=== PATIENT | male | born 1965 | race African-American/Black ===

== ENCOUNTER 2020-05-29 06:18 | Emergency (ER) | payer OTHER ==
[2020-05-29] MEDS ORDERED: SODIUM CHLORIDE 1,000 ML IV STA (06:31)
[2020-05-29] MEDS ORDERED: KETOROLAC TROMETHAMINE 30 MG/1 ML VIAL IVPUSH ONE (06:31)
[2020-05-29 06:35] VITALS: BMI 29.9
--- OUTSIDE RECORDS SUMMARY | 2020-05-29 06:36 | XMS ---
:1965 Demographics Address [address] [place] [address] Email Address Preferred Language Kenyan Marital Status Not or Holiness Affiliation NO Race BL Ethnic Group Not or Author Organization [facility] Support Name Relationship Address Phone [employer] Unavailable [address] [facility] [phone] [place] [address] BRIANDA FLORENTINO PARTNER [address] [place] [address] Care Team Providers Name Role Phone ROBERT YIPRIANNA Unavailable Unavailable Belinda Bryant Unavailable BELINDA BRYANT Unavailable Unavailable YipRobertrianna Unavailable Zakia Yip Unavailable Re-disclosure Warning The records that you are about to access may contain information from federally- assisted alcohol or drug abuse programs. If such information is present, then the following federally mandated warning applies: This information has been disclosed to you from records protected by federal confidentiality rules (42 CFR part 2). The federal rules prohibit you from making any further disclosure of this information unless further disclosure is expressly permitted by the written consent of the person to whom it pertains or as otherwise permitted by 42 CFR part 2. A general authorization for the release of medical or other information is NOT sufficient for this purpose. The Federal rules restrict any use of the information to criminally investigate or prosecute any alcohol or drug abuse patient.The records that you are about to access may contain highly sensitive health information, the redisclosure of which is protected by Article 27-F of the [facility] Public Health law. If you continue you may haveaccess to information: Regarding HIV / AIDS; Provided by facilities licensed or operated by the [facility] Office of Mental Health; or Provided by the [facility] Office for People With Developmental Disabilities. If such information is present, then the following [facility] mandated warning applies: This information has been disclosed to you from confidential records which are protected by state law. State law prohibits you from making any further disclosure of this information without the specific written consent of the person to whom it pertains, or as otherwise permitted by law. Any unauthorized further disclosure in violation of state law may result in a fine or long term sentence or both. A general authorization for the release of medical or other information is NOT sufficient authorization for further disclosure. Allergies and Adverse Reactions Type Description Substance Reaction Status Data Source(s ) Shellfish Shellfish NEXTGEN ([facility] [employer]) Drug Class NO KNOWN ALLERGIES NO KNOWN ALLERGIES Health System Encounters Encounter Providers Location Date Indications Data Source(s ) Outpatient 05/10/2020 [facility] ([facility] 10:58:00 [facility] EDT Outpatient 05/09/2020 [facility] ([facility] 11:[facility] EDT Outpatient 03/08/2020 NEXTGEN ([facility] 10[facility] EDT Outpatient 03/07/2020 NEXTGEN ([facility] 10:58:[facility] EDT Outpatient 01/24/2020 NEXTGEN ([facility] 10:[facility] EDT Outpatient 01/05/2020 NEXTGEN ([facility] 01:24:00 [facility] EDT Outpatient 01/05/2020 NEXTGEN ([facility] 04:17:[facility] EDT Outpatient 01/04/2020 NEXTGEN ([facility] 05:40:00 [facility] EDT Attender: Zakia 12/07/[address] [facility] WangAttender: Belinda 06:42:[address] [facility] EDT - 12/07/2019 11:10:00 AM EDT Attender: [address] ED 12/07/2019 [facility] WANGAttender: BELINDA 06:34:00 AM BRYANT EDT - 12/07/2019 11:10:00 AM EDT Patient discharged. Outpatient 09/04/2019 06:58:00 AM EST NEXTGEN ([facility]) Outpatient 09/03/2019 07:52:00 AM EST [facility]argo[facility] ([employer]) Medications Medication Brand Start Product Dose Route Administrative Pharmacy [facility] Indications Reaction Description Data Name Date Form Instructions Instructions Source(s) Acetaminoph oxycod Oral complet 1 tabl et, [place] en 325 MG / one-ac 2019 {tbl} ed Oral, ONC E, Health Oxycodone etamin 11:15: Beba 12/07/19 Hydrochlori ophen 00 AM at 1115, Fo r de 5 MG (PERCO EDT 1 Oral Tablet CET) dose
Maxi oxycodone-a 5-325 mum dose of cetaminophe MG per acetaminoph e n tablet n is 4000 mg (PERCOCET) 1 from all 5-325 MG tablet sources in per tablet 24 1 tablet hours.
Medication administered onsite 1 ML Ketorolac ketorolac 12/07/2019 15 Intravenous complet ed 15 mg, [place] Tromethamine (TORADOL) 09:45:00 AM mg Intravenous, Health 30 MG/ML injection EDT ONCE, Beba Cartridge 15 mg 12/07/19 at ketorolac 0945, For 1 (TORADOL) dose
If injection 15 given IV mg Push, May be given undiluted and Push over 1 minute.
Medication administered onsite cefTRIAXone 12/07/2019 1 g Intravenous completed 1 g, [place] (ROCEPHIN) 1 08:45:00 AM Intra venous, Health g in 5% EDT Administer over dextrose 50 30 Minutes, mL IVPB ONCE, Beba 12/07/19 at 0845, For 1 dose
Do NOT administer with calcium containing IV solutions (Lactated Ringers), parenteral nutrition, etc. Lines MUST be thoroughly flushed between infusions.
Medication administered onsite 150 ML iopamidol 12/07/2019 100 Intravenous completed 100 mL, [place] Iopamidol 760 (ISOVUE-370) 08:45:00 AM mL Intravenous, Health MG/ML 76 % EDT ONCE, Beba Prefilled injection 100 0 at Syringe mL 0845, For 1 iopamidol dose (ISOVUE-370) 76 % injection 100 mL Medication administered onsite morphine 0345-1039-11 12/07/2019 4 mg IV completed 4 mg, IV [place] injection 4 06:45:00 AM Push Push, ONCE, Health mg EDT Beba 12/07/19 at 0645, For 1 dose
If given IV Push, May be given undiluted or may dilute with 5mL NS and Push over 5 minutes.
Medication administered onsite famotidine 12/07/2019 20 mg IV Push completed 20 mg, IV Push, [place] (PEPCID) 20 mg 06:45:00 AM ON CE, [facility] in 0.9% sodium EDT 12/07/19 at chloride (PF) 0645, For 1 5 mL injection dose
Gi ve IV Push, Dilute with normal saline to yield a solution containing 4mg/mL and Push over 2 minutes.
Medication administered onsite sodium 5948-0164-74 12/07/2019 1000 Intravenous completed 1,000 mL, [place] chloride 06:45:00 AM mL Intraveno , Health 0.9 % EDT Administer bolus over 1 Hours, 1,000 mL ONCE, [facility] 12/07/19 at 0645, For 1 dose Medication administered onsite Ibuprofen 600 MG ibuprofen 12/07/2019 600 Oral completed Take 1 [place] Oral Tablet (ADVIL,MOTRIN) 12:00:00 AM mg tablet Health ibuprofen 600 MG tablet EDT by (ADVIL,MOTRIN) mouth 600 MG tablet every 6 (six) hours as needed for Pain for up to 7 days. Take 1 tablet by mouth every 6 (six) halle rs as needed for Pain for up to 7 days. Acetaminophen 325 MG / oxycodone-acetaminophen 12/07/2019 1 Oral completed Take 1 [place] Oxycodone Hydrochloride (PERCOCET) 5-325 MG per 12:00:00 AM {tbl} tablet by Health 5 MG Oral Tablet tablet EDT mouth oxycodone-acetaminophen e very 6 (PERCOCET) 5-325 MG per ( six) tablet hours as needed for Pain for up to 2 days. Max Daily Amount: 4 tablets. Take 1 tablet by mouth every 6 (six) halle rs as needed for Pain for up to 2 days. Max Daily Amount: 4 tablets. Tamsulosin tamsulosin 12/07/2019 0.4 Oral completed Take 1 [place] hydrochloride (FLOMAX) 0.4 12:00:00 AM mg capsule Health 0.4 MG Oral MG 24 hr EDT by mouth Capsule capsule daily for tamsulosin 14 days. (FLOMAX) 0.4 MG 24 hr capsule Take 1 capsule by mouth daily for 14 day s. Sulfamethoxazole 800 MG / sulfamethoxazole-trimethoprim 12/07/2019 1 Oral completed Take 1 [place] Trimethoprim 160 MG Oral (BACTRIM DS) 800-160 MG per 12:00:00 AM {tb l} tablet Health Tablet tablet EDT by sulfamethoxazole-trimethoprim mouth 2 (BACTRIM DS) 800-160 MG per (two) tablet times daily for 10 days. Take 1 tablet by mouth 2 (two) times acacia ly for 10 days. Insurance Providers Payer name Policy type Policy ID Covered Covered republican's Policy P rakesh / Coverage republican ID relationship to Drew Inf ormation type drew HIP HMO [id number] SP [id number] 01 1 HIP [id number] Self [id number] 01 1 HIP Hip [id number] 1 [id number] 01 [address] [place] [address] Problems, Conditions, and Diagnoses Code Display Name Description Problem Type Effective Dates Data Source(s) N20.1 Calculus of Calculus of ureter Diagnosis 12/07/2019 [facility] [place] ureter 06:34:00 AM EDT Abdominal Pain Abdominal Pain Diagnosis 12/07/2019 [place] [facility] 06:34:00 AM EDT back pain back pain Diagnosis 12/07/2019 [place] [employer] abdominal pain abdominal pain 06:34:00 AM EDT denies covid denies covid Surgeries/Procedures Procedure Description Date Indications Data Source(s) CT ABDOEN & PELVIS CT ABDOMEN PELVIS STAT 12/07/2019 12/07/2019 [place] W/CONTRAST MATERIAL W IV CONTRAST 8:34 AM EDT 12 :34:10 PM Health EDT URNLS DIP URINALYSIS STAT 12/07/2019 12/07/2019 [place] STICK/TABLET 7:52 AM EDT 11:52:00 AM Health REAGENT AUTO EDT MICROSCOPY LACTATE LACTIC ACID STAT 12/07/2019 12/07/2019 [place] 7:08 AM EDT 11:08:00 AM Health EDT LIPASE LIPASE STAT 12/07/2019 12/07/2019 [place] 7:07 AM EDT 11:07:00 AM Health EDT THROMBOPLASTIN TIME APTT STAT 12/07/2019 0 [place] PARTIAL 7:07 AM EDT 11:07:00 AM Health PLASMA/WHOLE BLOOD EDT BASIC METABOLIC BASIC METABOLIC STAT 12/07/201912/06 [place] PANEL CALCIUM TOTAL PANEL 7:07 AM EDT 11:07:00 AM Health EDT TROPONIN TROPONIN I STAT 12/07/2019 12/07/2019 [place] QUANTITATIVE 7:07 AM EDT 11:07:00 AM Health EDT PROTHROMBIN TIME PROTIME-INR STAT 12/07/2019 12/07/19 [place] 7:07 AM EDT 11:07:00 AM Health EDT HEPATIC FUNCTION HEPATIC FUNCTION STAT 12/07/2019 [place] PANEL PANEL 7:07 AM EDT 11:07:00 AM Health EDT BLOOD COUNT CBC DIFFERENTIAL STAT 12/07/2019 12/07/19 [place] COMPLETE AUTO&AUTO 7:07 AM EDT 11:07:00 AM Health DIFRNTL WBC COUNT EDT ECG ROUTINE ECG ED EKG 12 LEAD STAT 12/07/20192019 [place] W/LEAST 12 LDS TRCG 6:49 AM EDT 10:49:11 AM Health ONLY W/O I&R EDT TYPE AND SCREEN TYPE AND SCREEN STAT 12/07/201912/06 [place] 6:49 AM EDT 10:49:00 AM Health EDT Results ID Date Data Source [id number] 05/08/2020 02:17:41 PM EDT NEXTG EN ([employer] [facility] [id number] [facility]) >PATIENT: Nancy Richardson DATE OF : 1965DATE: 05/08/2020 05:15 PMVISIT TYPE: Telehealth-A/V This 54 year old male presents for ROUTINE FOLLOW-UP.History of Present Illness:1. ROUTINE FOLLOW-UP 54 year old male presents routine follow-up. He is interested in screening colonoscopy. Last screening colonoscopy was done 6 years, age 47, [place]- polyps. No hx of colon cancer. He denies GI complaints. Normal appetite.P KEITH LIST: Problem List reviewed. Problem Description Onset Date Chronic Clinical Status NotesDM type II Y HTN Y Hyperlipidemia Y Current smoker Y Asthma Y PAST M EDICAL/SURGICAL HISTORY (Detailed)Disease/disorder Onset Date Ma nagement Date CommentsLeft foot surgery Lumbar spine fusion Umbilical hernia repair Family History (Detailed)Relationship Family Member Name Age at Condit ion Onset Age Cause of DeathBrother Y 54 of complications of DM NBrother Diabete s mellitus NFather Y 81 of lung cancer, former smoker NMother Stroke NMothe r Diabetes mellitus NMother Y 78 of complications related to DM NSister Y 48 of breast cancer NSocial History: (Detailed)Tobacco use reviewed.Preferred language is Kenyan. Tobacco use status: Heavy cigarette smoker (20-39 cigs/day).Smokin g status: Heavy tobacco smoker.SMOKING STATUSType Smoking Status Usage Per Day Years Used Total Pack YearsCigarette Heavy tobacco smoker 1 Packs 33.00 33.00TOBACCO/VAPING EXPOSURE There is passive smoke exposure. The patient has had exposure to second hand smoke in the home environment.ALCOHOLThere is a history of alcohol use. consumed socially.CAFFEINE The patient uses caffeine: tea - occ. a day.COMMENTS [employer], direct support f or mentally disabledLives alone, 3 childrenSmokes 1 ppdSocial ETOHNo recreational drug use Medications (active prior to today)Medication Name Sig Description Start Date Stop Aki e Refilled Rx Elsewherealbuterol sulfate 0.63 mg/3 mL solution for nebulization // Yatorvastatin 20 mg tablet take 1 tablet by oral route every day 06/01/2019 06/01/2019 NProAir HFA 90 mcg/actuation aerosol inhaler inhale 2 puff by inhalation route every 4 - 6 hours as needed // YBreo Ellipta 200 mcg-25 mcg/dose powder for inhalation in watson 1 puff by inhalation route every day at the same time each day 06/01/2019 NChantix Starting Month Box 0.5 mg (11)-1 mg (42) tablets in dose pack Take as directed. 0 NChantix Continuing Month Box 1 mg tablet take 1 tablet by oral route 2 times ever y day with glass of water after meals 10/31/2019 Ntamsulosin 0.4 mg capsule take 1 capsu le by oral route every day 1/2 hour following the same meal each day // YBactrim DS 800 mg-160 mg tablet take 1 tablet by oral route every 12 hours // Ylosartan 100 mg tab let TAKE 1 TABLET BY MOUTH EVERY DAY 12/08/2019 12/08/2019 NPercocet 10 mg-325 mg tablet take 1 tablet by oral route every 6 hours as needed 12/08/2019 Nibuprofen 600 mg ta blet take 1 tablet by oral route 3 times every day as needed with food 12/08/2019 05/0 08/2019 NHYDROCHLOROTHIAZIDE 25 MG TAB TAKE 1 TABLET BY MOUTH EVERY DAY 01/12/2020 NJARDIANCE 25 MG TABLET TAKE 1 TABLET BY MOUTH EVERY DAY IN THE MORNING 0 02/09/2020 NCARVEDILOL 25 MG TABLET TAKE 1 TABLET BY MOUTH TWICE A DAY WITH FOOD 02/09/2020 NMETFORMIN HCL 1,000 MG TABLET TAKE 1 TABLET TWICE DAILY WIITH M ORNING AND EVENING MEALS 02/12/2020 02/12/2020 NMedication ReconciliationMedications re conciled today.AllergiesIngredient Reaction (Severity) Medication Name CommentShellf sada Review of SystemsSystem Neg/Pos DetailsConstitutional Negative Chills, F atigue, Fever, Malaise, Night sweats, Weight gain and Weight loss.ENMT Negative Ear draina ge, Hearing loss, Nasal drainage, Otalgia, Sinus pressure and Sore throat.Eyes Negative E ye discharge, Eye pain and Vision changes.Respiratory Negative Chronic cou gh, Cough, Dyspnea, Known TB exposure and Wheezing.Cardio Negative Chest pain, Cla udication, Edema and Irregular heartbeat/palpitations.GI Negative Abdom inal pain, Blood in stool, Change in stool pattern, Constipation, Decreased appetit e, Diarrhea, Heartburn, Nausea and Vomiting. Negative Dribbling, Dysuria, Hematuria, Polyuria (Genitourinary), Slow stream, Urinary frequency, Urinary incontinence and Urin patrick retention.Neuro Negative Dizziness, Extremity weakness, Gait disturbance, Headache, Me tricia impairment, Numbness in extremity, Seizures and Tremors.Psych Negative Anxiety, Depr ession and Insomnia.Integumentary Negative Brittle hair, Brittle nails, Change in s hape/size of mole(s), Hair loss, Hirsutism, Hives, Pruritus, Rash and Skin lesion.MS Negative Back pain, Joint pain, Joint swelling, Muscle weakness and Neck pain.Vital Sign sTime BP mm/Hg Pulse /min Resp /min Temp F Ht ft Ht in Ht cm Wt lb Wt kg BMI kg/m2 BSA m2 O2 Sat%1:20 PM 6.0 3.00 190.50 245.00 111.130 30.62 CommentsTime Comments1:20 PM Unable to obtain Blood Pressure.Measured ByTime Measured by1:20 PM Dana Solis zScreening Summary:The following were reviewed: tobacco usePhysical ExamExam Findings De tailsConstitutional Normal Well developed.Respiratory Normal Inspection - Normal. Effort - Normal.Psychiatric Normal Orientation - Oriented to time, place, p erson and situation. Appropriate mood and affect.Telehealth ServicesThis visit was conducted with the use of interactive audio and video telecommunications system that per mits real time communication between the patient and provider. Patient consent for virtu al visit was obtained on date 05/08/2020[facility] Patient s HomeTotal time of encounter 10 minutes .Assessment/Plan# Detail Type Description 1. Assessment Essential hypertension (I10). Patient Plan -This visit was conducted with the use of interactive audio and video telec ommunications system that permits real time communication between the patient and pr ovider. Patient consent for virtual visit was obtained on date: May 08, 2020 Origina ting Site: [facility] Distant Site: Patient s Home Total time of encounter 15 mi nutes Provider Plan Stable. Continue current treatment. 2. Assessment Hyperlipidemi a, unspecified hyperlipidemia type (E78.5). Provider Plan Stable. Continue current t reatment. 3. Assessment Type 2 diabetes mellitus without complication, with long -term current use of insulin (E11.9). Provider Plan HgbA1C 6.7 Continue current treatme nt. Follow-up in 3 months. 4. Assessment Screening for colon cancer (Z12.11). Pro vider Plan Hx of colon polyps. Screening colonoscopy due- consultation with GI sc heduled. Plan Orders He is to schedule a follow-up visit with He Recio or consultation. Medications (Added, Continued or Stopped today)Started Medication Dire ctions Instruction Stopped albuterol sulfate 0.63 mg/3 mL solution for nebulization 05/10 atorvastatin 20 mg tablet take 1 tablet by oral route every day Bactrim DS 800 m g-160 mg tablet take 1 tablet by oral route every 12 hours 06/01/2019 Breo Ellipta 200 mcg-25 mcg/dose powder for inhalation inhale 1 puff by inhalation route every day at the same time each day 02/09/2020 CARVEDILOL 25 MG TABLET TAKE 1 TABLET BY MOUTH TWICE A DAY WITH FOOD 10/31/2019 Chantix Continuing Month Box 1 mg tablet take 1 tablet by o ral route 2 times every day with glass of water after meals 10/31/2019 Chantix Starting Month Box 0.5 mg (11)-1 mg (42) tablets in dose pack Take as directed. 01/12/2020 HYDRO CHLOROTHIAZIDE 25 MG TAB TAKE 1 TABLET BY MOUTH EVERY DAY 12/08/2019 ibuprofen 600 mg t ablet take 1 tablet by oral route 3 times every day as needed with food 02/09/2020 JARD IANCE 25 MG TABLET TAKE 1 TABLET BY MOUTH EVERY DAY IN THE MORNING 12/08/2019 losartan 100 mg tablet TAKE 1 TABLET BY MOUTH EVERY DAY 02/12/2020 METFORMIN HCL 1,000 MG TABLET TAKE 1 TABLET TWICE DAILY WIITH MORNING AND EVENING MEALS 12/08/2019 Percocet 10 mg -325 mg tablet take 1 tablet by oral route every 6 hours as needed ProAir HFA 90 mcg/ac tuation aerosol inhaler inhale 2 puff by inhalation route every 4 - 6 hours as n eeded tamsulosin 0.4 mg capsule take 1 capsule by oral route every day 1/2 hour follow ing the same meal each day Counseling / Educational Factors:Counseling / educati onal factors reviewed.Provider: Crissy Fitzpatrick DO 05/08/2020 1:53 PMDocument generated by: Crissy Fitzpatrick DO 05/08/2020 01:53 PM --------- Krystin [facility] Nancy Sharpe [id number] 1965 020 05:15 PM / Name Value Range Interpretation Code Description Data Susan rce(s) Supporting Document(s ) ID Date Data Source [id number] 03/22/2020 04:21:19 PM EDT RENEG EN (Janell Nuñez [id number] [facility]) >PATIENT: Nancy Richardson DATE OF : 1965DATE: 03/22/2020 02:45 PMVISIT TYPE: Telehealth-A/VThis 54 year old male presents for ABDOMINAL COMPLAINTS.History of Present Illness:1. ABDOMINAL COMPLAINTS 54 year old male presents with complaints of abdominal cramping with diarrhea that started this morning. No fever or chill s. No blood or mucus. He attributes GI complaints to eating contaminated food. No sick contacts.PROBLEM LIST: Problem List reviewed. Problem Descripti on Onset Date Chronic Clinical Status NotesDM type II Y HTN Y Hyperlipidemia Y Current smoker Y Asthma Y Medications (active prior to today)Medic ation Name Sig Description Start Date Stop Date Refilled Rx Elsewherealbuterol sulfate 0.63 mg/3 mL solution for nebulization // Yatorvastatin 20 mg t ablet take 1 tablet by oral route every day 06/01/2019 06/01/2019 NProAir HFA 90 mcg/actuation aerosol inhaler inhale 2 puff by inhalation route every 4 - 6 ho urs as needed // YBreo Ellipta 200 mcg-25 mcg/dose powder for inhalation inhale 1 puff by inhalation route every day at the same time each day 06/01/2019 N Chantix Starting Month Box 0.5 mg (11)-1 mg (42) tablets in dose pack Take as directed. 10/31/2019 NChantix Continuing Month Box 1 mg tablet take 1 tablet by o ral route 2 times every day with glass of water after meals 10/31/2019 Ntamsulosin 0.4 mg capsule take 1 capsule by oral route every day 1/2 hour following the same meal each day // YBactrim DS 800 mg-160 mg tablet take 1 tablet by oral route every 12 hours // Ylosartan 100 mg tablet TAKE 1 TABLET BY MOUTH RITESH 12/08/2019 12/08/2019 NPercocet 10 mg-325 mg tablet take 1 tablet by oral route every 6 hours as needed 12/08/2019 Nibuprofen 600 mg tablet ta ke 1 tablet by oral route 3 times every day as needed with food 12/08/2019 12/08/2019 NHYDROCHLOROTHIAZIDE 25 MG TAB TAKE 1 TABLET BY MOUTH EVERY DAY 020 01/12/2020 NJARDIANCE 25 MG TABLET TAKE 1 TABLET BY MOUTH EVERY DAY IN THE MORNING 02/09/2020 02/09/2020 NCARVEDILOL 25 MG TABLET TAKE 1 TABLET B Y MOUTH TWICE A DAY WITH FOOD 02/09/2020 02/09/2020 NMETFORMIN HCL 1,000 MG TABLET TAKE 1 TABLET TWICE DAILY WIITH MORNING AND EVENING MEALS 02/12/2020 NAllergiesIngredient Reaction (Severity) Medication Name CommentShellfish Review of SystemsSystem Neg/Pos DetailsConstitutional Negative Chills, F atigue, Fever, Malaise, Night sweats, Weight gain and Weight loss.ENMT Negative Ear drainage, Hearing loss, Nasal drainage, Otalgia, Sinus pressure and So re throat.Eyes Negative Eye discharge, Eye pain and Vision changes.Respiratory Negative Chronic cough, Cough, Dyspnea, Known TB exposure and Wheezing.Cardio Ne gative Chest pain, Claudication, Edema and Irregular heartbeat/palpitations.GI Positive Abdominal pain, Diarrhea.GI Negative Blood in stool, Change in stool pattern, Constipation, Decreased appetite, Heartburn, Nausea and Vomiting. Negative Dribbling, Dysuria, Hematuria, Polyuria (Genitourinary), Slow stream, U rinary frequency, Urinary incontinence and Urinary retention.Psych Negative Anxiety, Depression and Insomnia.Integumentary Negative Brittle hair, Brittle nails, Change in shape/size of mole(s), Hair loss, Hirsutism, Hives, Pruritus, Rash and Skin lesion.MS Negative Back pain, Joint pain, Joint sw elling, Muscle weakness and Neck pain.Physical ExamExam Findings DetailsConstitutional Normal Well developed.Respiratory Normal Inspection - Normal. Effort - Nor mal.Psychiatric Normal Orientation - Oriented to time, place, person and situation. Appropriate mood and affect.Telehealth ServicesThis visit was conducted with the use of interactive audio and video telecommunications system that permits real time communication between the patient and provider. Lorena martinez consent for virtual visit was obtained on date 03/22/2020[facility] Patient s HomeTotal time of encounter 10 minutes .Assessment/Plan# Detail Type Description 1. Assessment Acute gastroenteritis (K52.9). Patient Plan -This visit was conducted with the use of interactive au robert and video telecommunications system that permits real time communication between the patient and provider. Patient consent for virtual visit was obtained o n date: March 22, 2020 Originating Site: [facility] Site: Patient s Home Total time of encounter 10 mi nutes Provider Plan Recommend bland diet, rest, plenty of fluids. Call or return if no improvement. Medications (Added, Continued or Stopped today)Started Medic ation Directions Instruction Stopped albuterol sulfate 0.63 mg/3 mL solution for nebulization 06/01/2019 atorvastatin 20 mg tablet take 1 tablet by oral route every day Bactrim DS 800 mg-160 mg tablet take 1 tablet by oral route every 12 hours 06/01/2019 Breo Ellipta 200 mcg-25 mcg/dose powder for inhalation in watson 1 puff by inhalation route every day at the same time each day 02/09/2020 CARVEDILOL 25 MG TABLET TAKE 1 TABLET BY MOUTH TWICE A DAY WITH FOOD 10/31/2019 Chantix Continuing Month Box 1 mg tablet take 1 tablet by oral route 2 times every day with glass of water after meals 10/31/2019 Chantix Starting Month Box 0. 5 mg (11)-1 mg (42) tablets in dose pack Take as directed. 01/12/2020 HYDROCHLOROTHIAZIDE 25 MG TAB TAKE 1 TABLET BY MOUTH EVERY DAY 12/08/2019 ibuprofen 60 0 mg tablet take 1 tablet by oral route 3 times every day as needed with food 02/09/2020 JARDIANCE 25 MG TABLET TAKE 1 TABLET BY MOUTH EVERY DAY IN THE MORNING 12/08/2019 losartan 100 mg tablet TAKE 1 TABLET BY MOUTH EVERY DAY 02/12/2020 METFORMIN HCL 1,000 MG TABLET TAKE 1 TABLET TWICE DAILY WIITH MORNING AND RITESH NICK MEALS 12/08/2019 Percocet 10 mg- 325 mg tablet take 1 tablet by oral route every 6 hours as needed ProAir HFA 90 mcg/actuation aerosol inhaler inhale 2 p uff by inhalation route every 4 - 6 hours as needed tamsulosin 0.4 mg capsule take 1 capsule by oral route every day 1/2 hour following the same meal each da y Provider: Crissy Fitzpatrick DO 03/22/2020 3:13 PMDocument generated by: Crissy Fitzpatrick DO 03/22/2020 03:13 PM - ---[employer] ally signed by Crissy Fitzpatrick DO on 03/22/2020 04:21 OlgaNancy vaughn [id number] 1965 03/22/2020 02:45 PM / Name Value Range Interpretation Code Description Data Susan rce(s) Supporting Document(s ) ID Date Data Source [id number] 03/11/2020 08:55:16 AM EDT [facility] EN ([facility] [id number] [facility]) >PATIENT: Nancy Richardson DATE OF : 1965DATE: 03/06/2020 07:45 AMVISIT TYPE: Office VisitThis 54 year old male presents for WELL ADULT EXAM.History of Present Illness:1. WELL ADULT EXAM 54 year old male presents for well adult exam. He is interested in getting screened for Covid ab. He was e xposed to positive coworker 1-2 weeks ago. Currently, patient is asymptomatic, afebrile.Colonoscopy: 3 years ago - JAJA Wong- polypsScreening Tools Other Screenings:Encounter Date Documented Date Instrument Score Severity/Interpretation MDD Tntfioxzkpaowx08/29/2020 03/06/2020 Rosa ent Health Questionnaire (PHQ-9) 0 03/06/2020 03/06/2020 Patient Health Questionnaire (PHQ-2) 0 Further testing is not required PATIENT HEALTH Q UESTIONNAIREOver the last 2 weeks, how often have you been bothered by any of the following problems? NOT AT ALL SEVERAL DAYS MORE THAN HALF THE DAYS NEARLY EVERY DAY1. Little interest or pleasure in doing things X 2. Feeling down, depressed or hopeless X 3. Trouble falling or staying asleep, o r sleeping too much 4. Feeling tired or having little energy 5. Poor appetite or overeating 6. Feeling bad about yourself - or that you are a failure or have let yourself or your family down 7. Trouble concentrating on things, such as reading the newspaper or watching television 8. Moving or speaking so slowly that other people could have noticed. Or the opposite - being so fidgety or restless that you have been moving around a lot more than usual. 9. Thoughts that you would be better off , or of hurt ing yourself in some way NOT DIFFICULT AT ALL SOMEWHAT DIFFICULT VERY DIFFICULT EXTREMELY [id number]. If you checked off any prob lems, how difficult have these problems made it for you to do your work, take care of things at home or get along with other pe ople? Total score: Screening total score was 0. Interpretation of total score: Initial diagnosis: None. Comments: PROBLEM LIST: Problem List r nehemiah. Problem Description Onset Date Chronic Clinical Status NotesDM type II Y HTN Y Hyperlipidemia Y Current smoker Y Asthma Y PAST MEDI BRENDA/SURGICAL HISTORY (Detailed)Disease/disorder Onset Date Management Date CommentsLeft foot surgery Lumbar spine fusion Umbilical hernia repair Family History (Detailed)Relationship Family Member Name Age at Condition Onset Age Cause of DeathBrother Y 54 of comp lications of DM NBrother Diabetes mellitus NFather Y 81 of lung cancer, former smoker NMother Stroke NMother Diabetes mellitus NM other Y 78 of complications related to DM NSister Y 48 of breast cancer NSocial History: (Reviewed, updated)Tobacco use reviewed. Preferred language is Kenyan. Tobacco use status: Heavy cigarette smoker (20-39 cigs/day).Smoking status: Heavy tobacco smoker.SMOKING STATUSType Smoking Status Usage Per Day Years Used Total Pack YearsCigarette Heavy tobacco smoker 1 Packs 33.00 33.00TOBACCO/VAPING EXPOSUREThere is pas sive smoke exposure. The patient has had exposure to second hand smoke in the home environment.ALCOHOLThere is a history of alcohol use. consumed s ocially.CAFFEINEThe patient uses caffeine: tea - occ. a day.COMMENTS [employer], direct support for mentally disabledLives alone, 3 childrenSmokes 1 ppdSocial ETOHNo recreational drug useMedications (active prior to today)Medication Name Sig Description Start Date Stop Date Refilled Rx Elsewhe realbuterol sulfate 0.63 mg/3 mL solution for nebulization // Yatorvastatin 20 mg tablet take 1 tablet by oral route every day 06/01/20192018 NProAir HFA 90 mcg/actuation aerosol inhaler inhale 2 puff by inhalation route every 4 - 6 hours as needed // YBreo Ellipta 200 mcg-25 mcg /dose powder for inhalation inhale 1 puff by inhalation route every day at the same time each day 06/01/2019 NChantix Starting Month Box 0.5 mg (11 )-1 mg (42) tablets in dose pack Take as directed. 10/31/2019 NChantix Continuing Month Box 1 mg tablet take 1 tablet by oral route 2 times ever y day with glass of water after meals 10/31/2019 Ntamsulosin 0.4 mg capsule take 1 capsule by oral route every day 1/2 hour following the same me al each day // YBactrim DS 800 mg-160 mg tablet take 1 tablet by oral route every 12 hours // Ylosartan 100 mg tablet TAKE 1 TABLET BY MOUTH 12/08/2019 12/08/2019 NPercocet 10 mg-325 mg tablet take 1 tablet by oral route every 6 hours as needed 12/08/2019 Nibuprofen 600 mg ta blet take 1 tablet by oral route 3 times every day as needed with food 12/08/2019 12/08/2019 NHYDROCHLOROTHIAZIDE 25 MG TAB TAKE 1 TA BLET BY MOUTH EVERY DAY 01/12/2020 01/12/2020 NJARDIANCE 25 MG TABLET TAKE 1 TABLET BY MOUTH EVERY DAY IN THE MORNING 02/09/2020 02/09/2020 NCARV EDILOL 25 MG TABLET TAKE 1 TABLET BY MOUTH TWICE A DAY WITH FOOD 02/09/2020 02/09/2020 NMETFORMIN HCL 1,000 MG TABLET TAKE 1 TABLET TWICE DAILY WIIT H MORNING AND EVENING MEALS 02/12/2020 02/12/2020 NMedication ReconciliationMedications reconciled today.AllergiesIngredient Reaction (Antoinettecaroline wadsworth) Medication Name CommentShellfish Reviewed, no changes.Review of SystemsSystem Neg/Pos DetailsConstitutional Negative Chills, F atigue, Fever, Malaise, Night sweats, Weight gain and Weight loss.ENMT Negative Ear drainage, Hearing loss, Nasal drainage, Otalgia, Sinus pressure and Sore throat.Eyes Negative Eye discharge, Eye pain and Vision changes.Respiratory Negative Chronic cough, Cough, Dyspnea, Known TB exposure and Wh eezing.Cardio Negative Chest pain, Claudication, Edema and Irregular heartbeat/palpitations.GI Negative Abdominal pain, Blood in stool, Change i n stool pattern, Constipation, Decreased appetite, Diarrhea, Heartburn, Nausea and Vomiting. Negative Dribbling, Dysuria, Erectile dysfunction , Hematuria, Polyuria (Genitourinary), Slow stream, Urinary frequency, Urinary incontinence and Urinary retention.Endocrine Negative Cold intole suzan, Heat intolerance, Polydipsia and Polyphagia.Neuro Negative Dizziness, Extremity weakness, Gait disturbance, Headache, Memory impairment , Numbness in extremity, Seizures and Tremors.Psych Negative Anxiety, Depression and Insomnia.Integumentary Negative Brittle hair, Brittle nails, Ch gini in shape/size of mole(s), Hair loss, Hirsutism, Hives, Pruritus, Rash and Skin lesion.MS Negative Back pain, Joint pain, Joint swelling, Muscle weakness and Neck pain.Reproductive Negative Penile discharge and Sexual dysfunction.Vital SignsTime BP mm/Hg Pulse /min Resp /min Temp F Ht ft Ht in Ht cm Wt lb Wt kg BMI kg/m2 BSA m2 O2 Sat%7:48 AM 130/81 93 98.0 6.0 3.00 190.50 240.00 108.862 30.00 97Measured ByTime Measured by7:48 AM Julia cara LedeeScreening Summary:The following were reviewed: tobacco usePhysical ExamExam Findings DetailsConstitutional Normal Well develo ped.Eyes Normal Conjunctiva - Right: Normal, Left: Normal. Pupil - Right: Normal, Left: Normal.Ears Normal Inspection - Right: Normal, Left: Normal . Canal - Right: Normal, Left: Normal. TM - Right: Normal, Left: Normal.Nose/Mouth/Throat Normal External nose - Normal. Lips/teeth/gums - Normal. Tonsils - Normal. Oropharynx - Normal.Respiratory Normal Inspection - Normal. Auscultation - Normal. Effort - Normal.Cardiovascular Normal Regular r ate and rhythm. No murmurs, gallops, or rubs.Abdomen Normal Inspection - Normal. Auscultation - Normal. No abdominal tenderness. No hepatic enlarge ment. No spleen enlargement. No hernia.Neurological Normal Memory - Normal. Cranial nerves - Cranial nerves II through XII grossly intact. Sensory - Normal. DTRs - Normal.Psychiatric Normal Orientation - Oriented to time, place, person and situation. Appropriate mood and affect.Immunization sImmunization Administered By Completed Library Paraprofessional Lot Number Route Site Credentials Date VIS Given Version Date of VIS Comments CVX CodeZoster vishnu mbinant subunit, preservative free Felipe MOE, Opal 03/06/2020 8:25:27 AM Gnarus SystemsoSmCold FuturesKline [id number] Intramuscular Left Deltoid 03/06/2020 1 187Completed Orders (this encounter)Order Details Reason Side Interpretation Result Initial Treatment Date RegionPatient Health Ques tionnaire (PHQ-9) 0 Patient Health Questionnaire (PHQ-2) Further testing is not required 0 Assessment/Plan# Detail Type Description Assessment Encounter for screening for malignant neoplasm of prostate (Z12.5). 2. Assessment Encntr for general adult medical exam w/o abnormal findings (Z00.00). Patient Plan 1. Counseled about healthy lifestyle habits such as smoking cessation, limiting alcohol intake, regular moderat e-intensity aerobic exercise (at least 30-45 mins a day x 5-6 days) safe sex practice with sexually transmitted disease screening, colon can cer screenining starting at age 50 or earlier for high risk patients, dyslipidemia screening at age 35 or earlier for patients with strong family history of cardiovascular disease and age appropriate immunizations such as influenza, tetantus and pneumoccocal. 2. Limit daily intake o f saturated fat, cholesterol, sodium, and added sugar. 3. Return for fasting bloodwork. 4. Follow-up in one year or as needed. Plan Orders CBC With Auto Diff to be performed, Complete Metabolic Profile (CMP) to be performed, Hemoglobin A1c (HA1C) to be performed, Lipid Panel to be performed, Microalbumin, Urine W/Crea Ratio to be performed, PSA (Prostate Specific Antigen) to be performed and TSH With Reflex To Free T4 to be performed. He is to schedule a follow-up visit with Crissy Fitzpatrick DO for preventive care 1 Year. 3. Assessment Type 2 diabetes mellitus without complication, with long-term current use of insulin (E11.9). Provider Plan HgbA1C 6.7 Continue current treatment. Continue diet and exercise. 4. Assessment Essen tial hypertension (I10). Provider Plan Stable. Continue current treatment. 5. Assessment Hyperlipidemia, unspecified hyperlipidemia type (E78.5). Provider Plan Stable. Continue current treatment. 6. Assessment Chronic obstructive pulmonary disease, unspecified COPD type (J44.9). Provider Plan Stable. Continue current treatment. 7. Assessment Encounter for observation for suspected exposure to other biological agents ruled out (Z03.8 18). Plan Orders SARS CoV 2 AB (IgG) to be performed. 8. Assessment Need for shingles vaccine (Z23). Plan Orders Zoster recombinant subunit, pres ervative free Status: Administered. Medications (Added, Continued or Stopped today)Started Medication Directions Instruction Stopped albuterol sulfate 0.63 mg/3 mL solution for nebulization 06/01/2019 atorvastatin 20 mg tablet take 1 tablet by oral route every day Bactrim DS 800 mg-160 mg tablet take 1 tablet by oral route every 12 hours 06/01/2019 Breo Ellipta 200 mcg-25 mcg/dose powder for inhalation inhale 1 puff by inhalati on route every day at the same time each day 02/09/2020 CARVEDILOL 25 MG TABLET TAKE 1 TABLET BY MOUTH TWICE A DAY WITH FOOD 10/31/2019 Chanti x Continuing Month Box 1 mg tablet take 1 tablet by oral route 2 times every day with glass of water after meals 10/31/2019 Chantix Starting Month Box 0.5 mg (11)-1 mg (42) tablets in dose pack Take as directed. 01/12/2020 HYDROCHLOROTHIAZIDE 25 MG TAB TAKE 1 TABLET BY MOUTH EVERY DAY 2019 ibuprofen 600 mg tablet take 1 tablet by oral route 3 times every day as needed with food 02/09/2020 JARDIANCE 25 MG TABLET TAKE 1 TABLET BY MOUTH EVERY DAY IN THE MORNING 12/08/2019 losartan 100 mg tablet TAKE 1 TABLET BY MOUTH EVERY DAY 02/12/2020 METFORMIN HCL 1,000 MG TABLET TAKE 1 TABLET TWICE DAILY WIITH MORNING AND EVENING MEALS 12/08/2019 Percocet 10 mg-325 mg tablet take 1 tablet by oral route every 6 hours as n eeded ProAir HFA 90 mcg/actuation aerosol inhaler inhale 2 puff by inhalation route every 4 - 6 hours as needed tamsulosin 0.4 mg capsule take 1 capsule by oral route every day 1/2 hour following the same meal each day Counseling / Educational Factors:Counseling / educational factors reviewed.Provider: Crissy Fitzpatrick DO 03/11/2020 8:49 AMDocument generated by: Crissy Fitzpatrick DO 03/11/2020 08:49 AM [employer] Nancy Abbott [id number] 1965 03/06/2020 07:45 AM / Name Value Range Interpretation Code Description Data Susan rce(s) Supporting Document(s ) ID Date Data Source [id number] 01/16/2020 12:00:00 AM EDT [facility] January 16, 2020Cailin Gardner [address] [place] [place], [place] [address]Bbx# Fax# [phone] RE: NANCY RICHARDSON : 1965 PT TEL# [phone] STUDY DATE: 01/16/2020Dear Gonzales Mejia MD:CT S CAN WITHOUT CONTRAST - ABDOMEN AND PELVISHISTORY: Possible kidney stone. H istory of herniorrhaphy and back surgery.CT of the abdomen and pelvis was performed without oral and intravenous contrast using the stone protocol. Images were obtained from the lung bases to the pubic symphysis. Axial, coronal and sagittal images were also obtained. Utilizing adjunct professor of law algorithms, the examination was performe d to optimize imaging quality while utilizing the lowest possible radiation dose.GLORIA RISON: None.FINDINGS:KIDNEYS: There is a 2-3 mm calculus in the lower pole of the rig ht kidney. Masses and cysts can be missed without intravenous contrast. A repeat s tudy with intravenous contrast or sonogram is recommended, if clinically indicated. Th ere is no evidence of hydronephrosis, other renal, ureteral or bladder calculi. The urinary bladder is not opacified. There is a calcified phlebolith in the right pelvis .LUNG BASES: Normal.LIVER: Normal. There is no evidence of a mass or intrahepatic or extrahepatic biliary dilatation.SPLEEN: Normal.PANCREAS: Normal for a noncontra st study. Masses can be missed without contrast.ADRENAL GLANDS: Normal.AORTA: There is no evidence of aortic aneurysm. .GALLBLADDER: The gallbladder is grossl y normal without evidence of radiopaque gallstones, abnormal wall thickening or pericholecystic fluid.. There is no gross evidence of gallstones. Ultrasound is driscoll ggested if clinically warranted.APPENDIX: The appendix is normal. There is no evid ence of appendicitis including an appendicolith, perforation, abscess or p eriappendiceal induration..LYMPHADENOPATHY: There is no evidence of lymphadenopathy throughout the study.,BOWEL: There is a redundant sigmoid colon extending into t he left lower quadrant. The remaining bowel appears to be grossly normal. It is not optimally evaluated due to the lack of oral contrast. There is no gross evidence of bowel-containing hernia, perforation or abscess.There is a nonspecific calcifica tion along the right iliac this muscle of the superior right iliac bone and between th e right iliac muscle and right iliopsoas muscle. Lumbar surgery is noted. There h as been posterior fusion of L3-L4. There is severe degenerative changes of L5-S1 wit h moderate or severe disc space narrowing.IMPRESSION:No evidence of acut e pathology. Right renal calculus. Redundant sigmoid colon.PS Electronically Signed: Donavon James MD 01/16/2020 1:30 PM FA:[facility] OF [facility]EElectronica falguni Signed - Donavon James MD 01/16/20 13:31 Name Value Range Interpretation Code Description Data Susan rce(s) Supporting Document(s ) ID Date Data Source [id number] 12/13/2019 10:46:35 PM EDT [facility]EXT[facility] EN ([place] [id number]) >PATIENT: Nancy Richardson DATE OF : 1965DATE: 12/08/2019 07:45 AMVISIT TYPE: Telehealth-A/VThis 54 year old male presents for ED FOLLOW-UP.History of Present Illness:1. ED FOLLOW-UP 54 year old male presents for ED follow-up. He went to the ED at [facility] with complaints of right sided flank and abdominal pain via ambulance yesterday. He was woken up at 2 am. No fever or chills. He vomited 4-[address] abdomen, pelvis showed obstructing 4 mm stone within the distal right ureter. He was given pain medication via IV. Patient was sent home with Flomax, Ibuprofen, Percocet and Bactrim DS in which he has been taking. He continues to have pain, improved. 09/18. He was a ble to get sleep. Afebrile. He was recommended to follow-up with Urology.PROBLEM LIST: Problem List reviewed. Problem Description Onset Date Chronic Clinical Status NotesDM type II Y HTN Y Hyperlipidemia Y Current smoker Y Asthma Y PAST MEDICAL/SURGICAL HISTORY (Detailed)Disease/disorder Onset Date Ma nagement Date CommentsLeft foot surgery Lumbar spine fusion Umbilical hernia repair Family History (Detailed)Relationship Family Member Name Age at Condition Onset Age Cause of DeathBrother Y 54 of complications of DM NBrother Diabetes mellitus NFather Y 81 of lung cancer, former smoker NMother S troke NMother Diabetes mellitus NMother Y 78 of complications related to DM NSister Y 48 of breast cancer NSocial History: (Detailed)Preferred language i s Kenyan. Tobacco use status: Heavy cigarette smoker (20-39 cigs/day).Smoking status: Heavy tobacco smoker.TOBACCO/VAPING EXPOSUREThere is passive smoke exposure. The patient has had exposure to second hand smoke in the home environment.ALCOHOLThere is a history of alcohol use. consumed socially.CAFFEINEThe patient uses caffei ne: tea - occ. a day.COMMENTS [employer], direct support for mentally disabledLives alone, 3 childrenSmokes 1 ppdSocial ETOHNo recreational drug useMedications (active prior to today)Medication Name Sig Description Start Date Stop Date Refilled Rx Elsewherealbuterol sulfate 0.63 mg/3 mL solution for nebulization // Yhydrochlorothiaz caron 25 mg tablet take 1 tablet by oral route every day 06/01/2019 06/01/2019 Natorvastatin 20 mg tablet take 1 tablet by oral route every day 06/01/2019 06/01/2019 Nmetformin 1,000 mg tablet take 1 tablet by oral route 2 times every day with morning and evening meals 06/01/2019 06/01/2019 NJardiance 25 mg tablet take 1 tablet by oral route every day in the morning 06/01/2019 06/01/2019 Ncarvedilol 25 mg tablet take 1 tablet by oral route 2 times every day with food 06/01/2019 06/01/2019 NProAir HFA 90 mcg/actuation aerosol inhaler inhale 2 puff by inhalation route every 4 - 6 hours as needed // YBreo Ellipta 200 mcg-25 mcg/dose powder for inhalation inhale 1 puff by inhalation route every day at the same time each day 06/01/2019 NLOSARTAN POTASSIUM 100 MG TAB TAKE 1 TABLET BY MOUTH EVERY DAY 10/10/2019 12/08/2019 12/08/19 20 NChantix Starting Month Box 0.5 mg (11)-1 mg (42) tablets in dose pack Take as directed. 10/31/2019 NChantix Continuing Month Box 1 mg tablet take 1 tablet by oral ro symone 2 times every day with glass of water after meals 10/31/2019 NPercocet 5 mg-325 mg tablet take 1 tablet by oral route every 12 hours as needed // 12/08/2019 Ytamsu losin 0.4 mg capsule take 1 capsule by oral route every day 1/2 hour following the same meal each day // YBactrim DS 800 mg-160 mg tablet take 1 tablet by oral route e very 12 hours // Yibuprofen 600 mg tablet take 1 tablet by oral route 3 times every day as needed with food // 12/08/2019 12/08/2019 YAllergiesIngredient Reaction (Severity) Medication Name CommentShellfish Review of SystemsSystem Neg/Pos DetailsConstitutional Negative Chills, Fatigue, Fever, Malaise, Night sweats, Weight gai n and Weight loss.ENMT Negative Ear drainage, Hearing loss, Nasal drainage, Otalgia, Sinus pressure and Sore throat.Eyes Negative Eye discharge, Eye pain and Vision oliver es.Respiratory Negative Chronic cough, Cough, Dyspnea, Known TB exposure and Wheezing.Cardio Negative Chest pain, Claudication, Edema and Irregular heartbeat/palpitatio ns.GI Negative Abdominal pain, Blood in stool, Change in stool pattern, Constipation, Decreased appetite, Diarrhea, Heartburn, Nausea and Vomiting. Negative Dribblin g, Dysuria, Hematuria, Polyuria (Genitourinary), Slow stream, Urinary frequency, Urinary incontinence and Urinary retention.Neuro Negative Dizziness, Extremity weakness, Gait disturbance, Headache, Memory impairment, Numbness in extremity, Seizures and Tremors.Psych Negative Anxiety, Depression and Insomnia.Integumentary Negative Brittle hair, Brittle nails, Change in shape/size of mole(s), Hair loss, Hirsutism, Hives, Pruritus, Rash and Skin lesion.MS Negative Back pain, Joint pain, Joint swelling, Muscle weakness and Neck pain.Physical ExamExam Findings DetailsConstitutional Normal No acute distress. Well nourished. Well developed.Respiratory Normal Inspection - Normal. Effort - Normal.Psychiatric Normal Orientation - Oriented to time, place, person and situation. Appropriate mood and affect.Telehealth ServicesThis visit was conducted with the use of interactive audio and video telecommunications system that permits real time communication between the patient and provider. Patient consent f or virtual visit was obtained on date 12/08/2019Originating Site: [facility] Site: Patient s HomeTotal time of encounter 20 minutes .Assessment/Plan# Detail Type Description 1. Assessment Right ureteral calculus (N20.1). Provider Plan Reviewed ED summary. Pain medication adjusted. Consultation with Bianca ellis. Plan Orders He is to schedule a follow-up visit with Gonzales Mejia MD for consultation. 2. Assessment Type 2 diabetes mellitus without complication, with long-term current use of insulin (E11.9). Provider Plan Continue current treatment. Follow-up in February as scheduled. 3. Assessment Chronic obstructive pulmonary disease, unspecified COPD type (J44.9). Provider Plan Continue current treatment. 4. Assessment Essential hypertension (I10). Provider Plan Continue currently treatme nt. Medications (Added, Continued or Stopped today)Started Medication Directions Instruction Stopped albuterol sulfate 0.63 mg/3 mL solution for nebulization 06/01/2019 a torvastatin 20 mg tablet take 1 tablet by oral route every day Bactrim DS 800 mg-160 mg tablet take 1 tablet by oral route every 12 hours 06/01/2019 Breo Ellipta 200 mc g-25 mcg/dose powder for inhalation inhale 1 puff by inhalation route every day at the same time each day 06/01/2019 carvedilol 25 mg tablet take 1 tablet by oral route 2 times every day with food 10/31/2019 Chantix Continuing Month Box 1 mg tablet take 1 tablet by oral route 2 times every day with glass of water after meals 10/31/2019 C hantix Starting Month Box 0.5 mg (11)-1 mg (42) tablets in dose pack Take as directed. 06/01/2019 hydrochlorothiazide 25 mg tablet take 1 tablet by oral route every day 12/08/2019 ibuprofen 600 mg tablet take 1 tablet by oral route 3 times every day as needed with food 06/01/2019 Jardiance 25 mg tablet take 1 tablet by oral route ever y day in the morning 12/08/2019 losartan 100 mg tablet TAKE 1 TABLET BY MOUTH EVERY DAY 06/01/2019 metformin 1,000 mg tablet take 1 tablet by oral route 2 times every day with morning and evening meals 12/08/2019 Percocet 10 mg-325 mg tablet take 1 tablet by oral route every 6 hours as needed ProAir HFA 90 mcg/actuation aerosol inha ler inhale 2 puff by inhalation route every 4 - 6 hours as needed tamsulosin 0.4 mg capsule take 1 capsule by oral route every day 1/2 hour following the same meal eac h day Provider: Crissy Fitzpatrick DO 12/13/2019 9:29 PMDocument generated by: Crissy Fitzpatrick DO 12/13/2019 09:28 PM ----[employer] Anderson Nancy [id number] 1965 12/08/2019 07:45 AM / Name Value Range Interpretation Code Description Data Susan rce(s) Supporting Document(s ) ID Date Data Source [id number] 12/11/2019 02:34:31 PM EDT [facility] EN ([employer] [id number] [employer]) >Patient: Nancy Richardson Carl te of : 1965Date: 12/08/2019 01:21 PMVisit Type: Telehealth Consult A/VDocume nt Type: Consult Note Crissy Fitzpatrick DO [address] [facility] [place] [address]Ci: Nancy RichardsonDOB: 1965Age: 54 yearsGender: MaleI had the pleasure of participating in the care of your pat ient at request for a consultation.This 54 year old male presents for 4mm distal right ureteral stone.History of Present Illness:1. 4mm distal right ureteral stone severe right flank pain starting yesterday morning No fever or chills [place] and vomiting x 4-5 went [facility] ER yesterday I reviewed the reports online had CT stone describing: - "Obstructing 4mm stone within distal right ureter just proximal to the UVJ with few additional/associated tiny 1-2mm stone a lso noted. A punctate stone also noted within the posterior wall of the bladder." - "Obstruction resulting in m ild right hydroureter with mild periureteral/perirenal edema. No marina hydronephrosis or perirenal abscess." - No other significant findings. urine with 68 WBC, >182 RBC, neg nitrites, mod LE d/c with Flomax, ibuprofen, Percocet, and Bactrim DS since then still has episodes of right flank pain pain medication helps a bit no stone passage thus far no h/o stonesPAST MEDICAL/SURGICAL HISTORY (Detailed)Disease/disorder Onset Date Ma nagement Date CommentsLeft foot surgery Lumbar spine fusion Umbilical hernia repair Medications (Started, S topped or Renewed this visit)Started Medication Directions Instruction Stopped albuterol sulfate 0.63 mg/3 mL solution for nebulization 06/01/2019 atorvastatin 20 mg tablet take 1 tablet by oral route every day Bactrim DS 800 mg-160 mg tablet take 1 tablet by oral route every 12 hours 06/01/2019 Breo Ellipta 200 mcg-25 mcg/dose powder for inhalatio n inhale 1 puff by inhalation route every day at the same time each day 06/01/2019 carvedilol 25 mg tablet take 1 tablet by oral route 2 times every day with food 10/31/2019 Chantix Continuing Month Box 1 mg tablet take 1 tablet by oral route 2 times every day with glass of water after meals 10/31/2019 Chantix Starting Month Box 0. 5 mg (11)-1 mg (42) tablets in dose pack Take as directed. 06/01/2019 hydrochlorothiazide 25 mg tablet take 1 tablet by oral route every day ibuprofen 600 mg tablet take 1 tablet by oral route 3 times every day as needed with f ood ibuprofen 600 mg tablet take 1 tablet by oral route 3 times every day as needed with food Jardiance 25 mg tablet take 1 tablet by oral route every day in the morning 12/08/2019 losartan 100 mg tabl et TAKE 1 TABLET BY MOUTH EVERY DAY 10/10/2019 LOSARTAN POTASSIUM 100 MG TAB TAKE 1 TABLET BY MOUTH EVERY DAY metformin 1,000 mg tablet take 1 tablet by oral route 2 times every day with morning and evening meals 12/08/2019 Percocet 10 mg-325 mg tablet take 1 tablet by oral route every 6 hours as needed Percocet 5 mg-325 mg t ablet take 1 tablet by oral route every 12 hours as needed 12/08/2019 ProAir HFA 90 mcg/actuation aerosol inhaler inh lazaro 2 puff by inhalation route every 4 - 6 hours as needed tamsulosin 0.4 mg capsule take 1 capsule by oral route ev yaakov day 1/2 hour following the same meal each day AllergiesIngredient Reaction (Severity) Medication Name Milad tomlin Family History (Detailed)Relationship Family Member Name Age at Condition Onset Age Cause of Brother Y 54 of complications of DM NBrother Diabetes mellitus NFather Y 81 of lung cancer, forme r smoker NMother Stroke NMother Diabetes mellitus NMother Y 78 of complications related to DM NSister Y 48 of breast cancer NSocial History: (Detailed)Preferred language is Kenyan. Tobacco use status: Heavy ciga rette smoker (20-39 cigs/day).Smoking status: Heavy tobacco smoker.TOBACCO/VAPING EXPOSUREThere is p assive smoke exposure. The patient has had exposure to second hand smoke in the home environment.ALCOHOLThere is a histo ry of alcohol use. consumed socially.CAFFEINEThe patient uses caffeine: tea - occ. a day.COMMENTS [employer], direct driscoll pport for mentally disabledLives alone, 3 childrenSmokes 1 ppdSocial ETOHNo recreational drug useReview of SystemsSy stem Neg/Pos DetailsConstitutional Negative Change in appetite, Chills/rigors, Fatigue and Fever.Eyes Negative Blurred vision and Double vision.Respiratory Negative Dyspnea and Wheezing.Cardio Negative Chest pain.GI Negative Abdomina l pain, Nausea and Vomiting. Comments See HPI.Endocrine Negative Increased thirst.Neuro Negative Paresthesia.Psych Negative Anxiety.Sanjay/Lymph Negative Easy bleeding.Physical ExamExam Findings DetailsConstitutional Normal No acute di stress. Well nourished. Well developed.Head/Face Normal Facial features - Normal.Respiratory Normal Inspection - N ormal. Effort - Normal.Neurological Normal Level of consciousness - Normal. Orientation - Normal. Memory - Normal.Ps ychiatric Normal Orientation - Oriented to time, place, person and situation. No agitation. Appropriate mood and affect. Sufficient language. Normal insight. Normal judgment. Normal attention span and concentration.Telehealth ServicesThis vi sit was conducted with the use of interactive audio and video telecommunications system that permits real time communicat ion between the patient and provider. Patient consent for virtual visit was obtained on date 12/08/2019Originating S ite: [facility] Site: Patient s HomeTotal time of encounter 7 minutes. Assessment/Plan# Detail Type Description 1. Assessment Right ureteral calculus (N20.1). Patient Plan - we discussed dannielle t the majority of uncomplicated ureteral stones up to 10mm in size will pass spontaneously over the course of 4 weeks - thus the current AUA guidelines recommend a trial of observation - we discussed the indications for more emerg ent evaluation (fevers, intractable pain, etc) and intervention - discussed that if having persistent bothersome symptoms and cannot tolerate a trial of passage an elective intervention can be arranged, or if having episodes of sever e pain might need to present to ER for more immediate intervention - discussed that if no objective evidence of stone p assage by 4-6 weeks, would need repeat imaging to see if the stone is still there, and that if it is an intervention would be indicated to remove the stone as the likelihood of spontaneous passage after 4-6 weeks is low - continue Flomax - telehealth f/u in 2 weeks to see how he is doing - if stone not passed by then consider arranging repeat CT scan a t 4-6 week thony Thank you for the opportunity to evaluate this interesting patient. Please feel free to contact our office with any questions.Provider: Gonzales Mejia MD 12/08/2019 1:22 PM ----[employer] Nancy Sharpe 0 [id number] 1965 12/08/2019 01:30 PM Page: / Name Value Range Interpretation Code Description Data Susan rce(s) Supporting Document(s ) ID Date Data Source [id number] 12/07/2019 06:06:26 PM EDT [facility] Name Value Range Interpretation Description Data Sup porting Code Source(s) Document(s ) Gyroscopic Instrument Tester [employer] Interface Message Text HISTORY OF PRESENT ILLNESS 12/07/2019, 6:04 PM. History Provided by: patient Chief Sandra keiry: flank pain Nancy Richardson is a 54 y.o. male with a PMHx and PSHx as list ed below, ispresenting to the ED for flank pain. 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 Rated as 10/10, primarily in the R flank withr adiation to the RLQ and suprapubic region. Pain accompanied by four episodes ofvomi ting. Patient took 400 mg ibuprofen without relief, BIBEMS, received 50 ugof fentany l and a medication for nausea. Patient denies pain or nausea oncurrent evaluation. Pat ient denies hx of kidney stones or prior abdominalsurgeries.Patient denies fever/ chills, chest pain, shortness of breath, cough, diarrhea,dysuria, hematuria, weak ness, numbness, tingling, headache and dizziness.Patient denies recent travel, sick contacts, exposure to individuals who haverecently traveled, or known exposure to COVID-19.PCP: Crissy Fitzpatrick DO REVIEW OF S YSTEMS Vital signs reviewedNursing notes reviewedROSPositiv e for flank pain, abdominal pain, nausea, vomiting.Negative for ever/chills, chest pain, shortness of breath, cough, diarrhea,dysuria, hematuria, weakness, n umbness, tingling, headache and dizziness. P AST HISTORY Past Medical History:Diagnosis Date Diabetes mellitus Hyperlipidemia HypertensionPast Surgical History:Proce dure Laterality Date BACK SURGERYSocial History:Social Histo ryTobacco Use Smoking status: Current Every Day Smoke r Packs/day: 1.00 Types: Cigarettes Smokeless tobacco: Never UsedSubstance Use Topics Alcohol use: Not on file Drug use: Not on fileThe patient's home medications have been reviewed.Allergies: Patient has no known allergies.--------- PHYSICAL EXAM BP 146/79 | Pulse 80 | Temp 97.5 F (36.4 C) (Oral) | Resp 18 | Ht 6' 3"(1.905 m) | Wt (!) 235 lb (106.6 kg) | SpO2 100% | BMI 29.37 kg/mConstitutional: Well developed, w ell nourished. GCS is 15. No evidence ofrespiratory distress.Head: Atraumatic . Normocephalic.Eyes: PERRL. Conjunctivae are not pale.ENT: Mucous membranes are moist and intact. Oropharynx is clear and symmetric.Neck: Supple. No nuchal rigi dity. Full ROM.Cardiovascular: Regular rate. Regular rhythm. No murmurs, rubs , or gallops.Pulmonary/Chest: Clear to auscultation bilaterally. No wheezing, rales orrhonchi.Abdominal: Soft and non-distended. There is no tenderness. No CVA tenderness.No rebound, guarding, or rigidity. No organomegaly. Normal shell l sounds. Nopulsatile mass.Back: No CVA tenderness.Extremities: No edema. No c yanosis. Distal pulses are 2+. No calftenderness.Skin: Skin is warm and d ry. No petechiae. No purpura.Neurological: Alert, awake, and appropriate. Normal s peech. No acute focalneurological deficits are appreciated.Psychiatric: Good eye c ontact. Normal affect and behavior. LABORA TORY RESULTS Results for orders placed or performed during e hospital encounter of 12/07/19CBC auto differentialResult Value Ref Range WBC 9 .4 4.3 - 10.6 10^3/L RBC 4.67 4.30 - 5.80 10^6/L Hemoglobin 14.2 13.3 - 17.0 g/d L Hematocrit 42.3 40.3 - 50.3 % MCV 90.6 81.4 - 99.0 fL MCH 30.4 26.8 - 32.9 pg MCHC 3 3.6 31.4 - 34.9 g/dL RDW 12.8 11.6 - 14.9 % Platelets 291 132 - 337 10^3/L Neutrop hils Absolute 7.3 1.5 - 7.5 10^3/L Lymphocytes Absolute 1.2 0.7 - 3.6 10^3/ L Monocytes Absolute 0.9 0.2 - 1.1 10^3/L Eosinophils Absolute 0.04 0.00 - 0.50 10 ^3/L Basophils Absolute 0.0 0.0 - 0.1 10^3/L Neutrophils Relative 77.3 41.7 - 78.9 % Lymphocytes Relative 12.7 10.8 - 45.9 % Monocytes Relative 9.0 3.7 - 15.0 % Eosinophils Relative 0.4 0.0 - 5.7 % Basophils Relative 0.4 0.0 - 1.5 % IG Re lative 0.2 0.0 - 3.0 % Abs Neutrophil Count 7,266 1,500-8,000 Cells/bw5Zfvxs metabol ic panelResult Value Ref Range Sodium 138 136 - 144 mEq/L Potassium 3.5 3.5 - 5.1 mEq/ L Chloride 99 (L) 101 - 111 mEq/L CO2 24 22 - 32 mEq/L BUN 18 8 - 20 mg/dL Glucose 181 (H) 70 - 110 mg/dL Calcium 9.9 8.5 - 10.1 mg/dL Creatinine 1.10 (H) 0.55 - 1.02 mg /dL Anion Gap 15 8 - 17 mEq/L eGFR BONIFACIO Male >60.0 >=60.0 ml/min/1.732m2 eGFR AA Male >60.0 >=60.0 ml/min/1.894m9Wmbahjq function panelResult Value Ref Range Albumin 4.2 3.5 - 4.8 g/dL Total Protein 7.2 6.4 - 8.3 g/dL Total Bilirubin 0.5 0.3 - 1.2 mg/dL Bilirubin, Direct <0.10 (L) 0.10 - 0.50 mg/dL Bilirubin, Indirect Alkaline Phosp hatase 64 45 - 117 U/L AST 24 15 - 41 U/L ALT 32 17 - 63 U/LUrinalysisResult Value Ref Range Clarity, UA Cloudy (A) Clear Color, UA Rosanna (A) Colorless, Yellow, Straw Speci fic [place], UA 1.024 1.001 - 1.035 Glucose, UA >=500 (A) Negative mg/dL pH, UA 5.0 5 .0 - 8.0 Blood, UA Large (A) Negative Protein, UA 100 (A) Negative mg/dL Bili stern, UA Negative Negative Urobilinogen, UA Negative Negative mg/dL Ketone UA Negati ve Negative mg/dL Nitrite, UA Negative Negative Leukocytes, UA Moderate (A) Neg ative WBC, UA 69 (H) <6 /HPF RBC, UA >182 (H) <3 /HPF Bacteria Few /HPF Mucous Rare /H PF Squam Epithel, UA 1 (H) <1 /HPF Hyaline Casts, UA 6 (H) <3 /LPFLactic acidResult Value Ref Range Lactic Acid 2.5 (H) 0.5 - 2.2 mmol/LLipaseResult Value Ref Range L ipase 33 22 - 51 U/LTroponin IResult Value Ref Range TROPONIN I <0.03 <0.03 ng/mLPr otime-INRResult Value Ref Range Protime 11.3 10.3 - 12.7 seconds INR 0.98 0.90 - 1.10 APTTResult Value Ref Range aPTT 28.9 25.1 - 36.5 secondsED EKG 12 LEADResult Value R ef Range Ventricular Rate 83 BPM Atrial Rate 83 BPM P-R Interval 150 ms QRS Duration 80 ms Q-T Interval 380 ms QTC Calculation (Bezet) 446 ms P Leopold 14 degrees R Leopold 44 degrees T Leopold 55 degreesType and screenResult Value Ref Range ABO/RH O PO S ANTIBODY SCREEN NEG PROGRESS NOTES Orders Placed This EncounterProcedures CT Abdomen Pelvis With IV Contrast CBC auto differential Basic metabolic panel Hepatic function panel Urinalysis Lactic acid Lipase Troponin I Protime-INR APTT ED EKG 12 LEAD Type and screenMedicationssodium chlori de 0.9 % bolus 1,000 mL (0 mLs Intravenous Completed 12/07/1915)famotidine (PEPCI D) 20 mg in 0.9% sodium chloride (PF) 5 mL injection (20 mg IVPush Given 12/07/19 07 11)morphine injection 4 mg (4 mg IV Push Given 12/07/19 0950)iopamidol (ISOVUE-370 ) 76 % injection 100 mL (100 mLs Intravenous Given )cefTRIAXone (ROCEPHIN) 1 g in 5% dextrose 50 mL IVPB (0 g Intravenous Completed12/07/19 0953)ketoro lac (TORADOL) injection 15 mg (15 mg Intravenous Given 12/07/1947)oxycodone -acetaminophen (PERCOCET) 5-325 MG per tablet 1 tablet (1 tablet OralGiven 12/07/19 110 6)Time: 8:00 AMPatient evaluated, pain controlled. Awaiting CT scan.Time: 8:35 AMPatient reevaluated. Still denies nausea or pain. Ceftriaxone ordered for UAconcerni ng for UTI. Likely R urolithiasis on CT. Pending radiologist readTime: 9:30 AMRec eived call from Radiology. Patient has 4 mm R urolithiasis with perinephricstranding, with concern for infected stone. Appendix normalTime: 9:42 AMPatient has return of pain. Patient in mild painful distress. Toradol, morphineto be given at this cora edmondson Urology paged.Time: 10:00 AMSpoke to Urology, Dr. Sonu Weaver. States likely not infected stone. Patient canbe managed as an outpatient. Pain control, tamulosin. Denies need forantibiotics at this time.Time: 10:45 AMPatient pain improved. 3/10. Pat ient stable for discharge. Patient instructed onhome medications, need for Urology fol low up PHAN, and strict return precautionsdiscussed including fever, in tractable pain, vomiting.Time 11:05 AMPercocet given for pain prior to disch arge. He will follow up with urology.Return precautions were discussed. Questions an d concerns were addressed priorto discharge MEDICAL DECISION MAKING Vital Signs: Reviewed the patient s vital signs.Nursing Notes: Reviewed an d utilized the nursing notes.Old Medical Records: The patient's available past id dical records and pastencounters were reviewed.Laboratory Studies: Ordered and independently interpreted laboratory tests, seeabove.Imaging Studies: Imaging studie s were ordered. Radiologist's interpretationincludes:CT Abdomen Pelvis With IV ContrastFinal ResultIMPRESSION:1. Obstructing 4 mm stone within the distal right ureter just proximal to theUVJ with fewadditional/associated tiny 1-2 mm sto ne also noted. A punctate stone also notedwithin theposterior wall of the jamil dder.2. Obstruction resulting in mild right hydroureter with mildperiureteral/perire nal edema. Nofrank hydronephrosis or perirenal abscess.3. No bowel obstructio n. Unremarkable appendix. Unremarkable gallbladder.EKG: Emergency provider tonny dill, reviewed, and independently interpreted theEKG. Time Interpreted: 08: 20 AMRate: 83Rhythm: regularInterpretation: NSR with ventricular rate 83. Possible a trial enlargement.Normal axis intervals. No ischemic changes.Comparison: No prior EC G's for comparisonConsultations/Discussions: The emergency provider discussed patient care withanother provider. Please refer to the details as documented above. Urology , Stephania Weaver, consulted.ED Physician Core Measures:Hypertension Screening: This pa tiemichelle s BP was hypertensive (greater fveo595/9 0)while in the ED. He was instructed to follow up with a primary careprovider fo r blood pressure re-check and management.Additional MDM and Provider N otes: IMPRESSION AND DISPOSITION IMPRESSI ON1. Calculus of ureter2. Hydronephrosis with renal and ureteral calculous obstruction DISPOSITIONDisposition: DischargePatient condition: Stable ------ COUNSELING Counseling : The emergency provider has spoken with the patient and discussedtoday s findings, in addition to providing spe cific details for the plan ofcare. Questions are answered. There is agreement with t he plan. Discussed thereturn indications and importance of follow-up.Leroy Underwood R [id number]/30/20 1114I agree with the above. I Zakia Yip DO agree with the Resident's findings andplan. I saw and evaluated the patient, and reviewed the Resident's note.Zakia Yip, DO12/07/19 1806 ID Date Data Source [id number] 12/07/2019 10:34:31 AM EDT [facility] Name Value Range Interpretation Description Data Sup porting Code Source(s) Document(s ) Gyroscopic Instrument Tester [employer] Interface Message Text Hourly Rounding Addressed ID Date Data Source [id number] 12/07/2019 10:08:45 AM EDT [facility] ORIGINAL: WedDec 07, 2019 10:08 AM by Antwon Leon MDEXAMINATION:CT ABDOMEN PELVIS WITH IV CONTRASTHISTORY:LQ pain r adiating to backCOMPARISON:None availableTECHNIQUE:Thin axial images thr ough the abdomen and pelvis were obtained following the administration of IVcontra st. Coronal and sagittal reconstructions provided.FINDINGS:Lower thorax:Mild bila teral dependent atelectatic changes.Liver: Within normal limits. No biliary ductal dilation.Gallbladder: Not dilated.Kidneys/Bladder: There is an obs tructing 4 mm stone just proximal to the right UVJ measuring 4 mm.There are sever al additional punctate densities/stones more distally within the UVJ as well as anadd itional punctate stone within the bladder along the right posterior bladder wall. There isresulting a mild hydroureter and periureteral edema. There is also perir enal edema without frankhydronephrosis or perirenal abscess. The left kidney is u nremarkable. There is no lefthydroureteronephrosis. The bladder is otherwise under distended. The prostate is not enlarged.Spleen: Within normal li mits.Pancreas: Within normal limits.Adrenal glands: Within normal limits.Aorta: Norm al in course and caliber.GI tract: Evaluation is limited by lack of enteric contrast. There is redundancy of the sigmoid.There is no evidence of obstruction. There is no free intraperitoneal fluid or air. The appendixis identified and appears within normal limits. No abdominal or pelvic adenopathy is identified.Musculoskeletal : Degenerative changes of the lumbosacral junction. Spinal fusion at L3-L4.IMPRES STEPHAN:1. Obstructing 4 mm stone within the distal right ureter just proximal to the UVJ with fewadditional/associated tiny 1-2 mm stone also noted. A punctate stone a lso noted within theposterior wall of the bladder.2. Obstruction resulting in mild right hydroureter with mild periureteral/perirenal edema. Nofrank h ydronephrosis or perirenal abscess.3. No bowel obstruction. Unremarkable appendi x. Unremarkable gallbladder. Name Value Range Interpretation Code Description Data Susan rce(s) Supporting Document(s ) ID Date Data Source [id number] 12/07/2019 09:19:16 AM EDT [facility] Name Value Range Interpretation Description Data Sup porting Code Source(s) Document(s ) Gyroscopic Instrument Tester [employer] Message Text Hourly Rounding Addressed. ID Date Data Source [id number] 12/07/2019 08:34:46 AM EDT [facility] Name Value Range Interpretation Description Data Sup porting Code Source(s) Document(s ) Gyroscopic Instrument Tester [employer] Message Text Pt to and from CT scan. ID Date Data Source [id number] 12/09/2019 08:42:00 AM EDT [facility] Name Value Range Interpretation Code Description Data Susan rce(s) Supporting Document(s ) CULTURE No Growth [facility] in 2 days ID Date Data Source [id number] 12/07/2019 08:26:00 AM EDT [facility] Name Value Range Interpretation Description Data Sup porting Code Source(s) Document(s ) CLARITY Cloudy Clear Abnormal [place] (applies to Health non-numeric results) COLOR Rosanna Colorless, Abnormal [place] Yellow, (applies to Health Straw non-numeric results) SPECIFIC 1.024 1.001-1.03 [place] GRAVITY UA 5 Health GLUCOSE UR >=500 Negative Abnormal [place] mg/dL (applies to Health non-numeric results) PH UA 5.0 5.0-8.0 [facility] BLOOD UA Large Negative Abnormal [place] (applies to Health non-numeric results) PROTEIN UR 100 mg/dL Negative Abnormal [place] (applies to Health non-numeric results) BILIRUBIN UA Negative Negative [facility] UROBILINOGEN Negative Negative [place] UA mg/dL Health KETONE UA Negative Negative [place] mg/dL [facility] NITRITE UA Negative Negative [place] [facility] LEUKOCYTE Moderate Negative Abnormal [place] ESTERASE UA (applies to Health non-numeric results) WBC UA 69 /HPF <6 Above high [place] normal Health RBC UA <3 Above high [place] normal Health BACTERIA UA Few /HPF [facility] MUCOUS UA Rare /HPF [facility] SQUAMOUS 1 /HPF <1 Above high [place] EPITHELIAL normal Health HYALINE CASTS 6 /LPF <3 Above high [place] normal Health ID Date Data Source [id number] 12/07/2019 07:44:00 AM EDT [facility] Name Value Range Interpretation Code Description Data Supporting Source(s) Document(s ) LACTATE 2.5 mmol/L 0.5-2.2 Above high normal [place] [facility] ID Date Data Source [id number] 12/07/2019 07:41:00 AM EDT [facility] Name Value Range Interpretation Description Data Sup porting Code Source(s) Document(s ) ALBUMIN 4.2 g/dL 3.5-4.8 [facility] TOTAL PROTEIN 7.2 g/dL 6.4-8.3 [facility] BILIRUBIN 0.5 0.3-1.2 [place] TOTAL mg/dL Health BILIRUBIN 0.10-0.5 Below low normal [place] DIRECT 0 Health BILIRUBIN, [place] INDIRECT Health ALKALINE 64 U/L 45-117 [place] PHOSPHATASE Health AST (SGOT) 24 U/L 15-41 [facility] ALT (SGPT) 32 U/L 17-63 [facility] ID Date Data Source [id number] 12/07/2019 07:41:00 AM EDT [facility] System Name Value Range Interpretation Code Description Data Susan rce(s) Supporting Document(s ) TROPONIN I <0.03 [facility] ID Date Data Source [id number] 12/07/2019 07:36:00 AM EDT [facility] Name Value Range Interpretation Description Data Sup porting Code Source(s) Document(s ) APTT 28.9 seconds 25.1-36.5 [facility] ID Date Data Source [id number] 12/07/2019 07:36:00 AM EDT Health System Name Value Range Interpretation Description Data Sup porting Code Source(s) Document(s ) PROTIME 11.3 10.3-12.7 [facility] seconds INR 0.98 0.90-1.10 [facility] ID Date Data Source [id number] 12/07/2019 07:35:00 AM EDT [facility] System Name Value Range Interpretation Description Data Sup porting Code Source(s) Document(s ) SODIUM 138 136-144 [place] mEq/L [facility] POTASSIUM 3.5 3.5-5.1 [place] mEq/L [facility] CHLORIDE 99 mEq/L 101-111 Below low normal Health System CO2 24 mEq/L 22-32 [facility] BLOOD UREA 18 mg/dL 8-20 [facility] GLUCOSE 181 70-110 Above high normal [place] mg/dL [facility] CALCIUM 9.9 8.5-10.1 [place] mg/dL [facility] CREATININE 1.10 0.55-1.0 Above high normal [place] mg/dL 2 Health ANION GAP 15 mEq/L 8-17 [facility] System EGFR BONIFACIO MALE >=60.0 Health System EGFR AA MALE >=60.0 Health System ID Date Data Source [id number] 12/07/2019 07:35:00 AM EDT Health System Name Value Range Interpretation Code Description Data Susan rce(s) Supporting Document(s ) LIPASE 33 U/L 22-51 [facility] System ID Date Data Source [id number] 12/07/2019 07:22:00 AM EDT [facility] System Name Value Range Interpretation Description Data Sup porting Code Source(s) Document(s ) WBC 9.4 4.3-10.6 [place] 10^3/ Health L RBC 4.67 4.30-5.8 [place] 10^6/ 0 Health L HEMOGLOBIN 14.2 13.3-17. [place] g/dL 0 Health HEMATOCRIT 42.3 % 40.3-50. [place] 3 Health MCV 90.6 fL 81.4-99. [place] 0 Health MCH 30.4 pg 26.8-32. [place] 9 Health MCHC 33.6 31.4-34. [place] g/dL 9 Health RDW 12.8 % 11.6-14. [place] 9 Health PLATELET COUNT 291 132-337 [place] 10^3/ Health L NEUTROPHILS 7.3 1.5-7.5 [place] ABSOLUTE COUNT 10^3/ Health L LYMPHOCYTES 1.2 0.7-3.6 [place] ABSOLUTE COUNT 10^3/ Health L MONOCYTES 0.9 0.2-1.1 [place] ABSOLUTE COUNT 10^3/ Health L EOSINOPHILS 0.04 0.00-0.5 [place] ABSOLUTE COUNT 10^3/ 0 Health L BASOPHILS 0.0 0.0-0.1 [place] ABSOLUTE COUNT 10^3/ Health L NEUTROPHILS 77.3 % 41.7-78. [place] RELATIVE 9 Health PERCENT LYMPHOCYTES 12.7 % 10.8-45. [place] RELATIVE 9 Health PERCENT MONOCYTES 9.0 % 3.7-15.0 [place] RELATIVE Health PERCENT EOSINOPHILS 0.4 % 0.0-5.7 [place] RELATIVE Health PERCENT BASOPHILS 0.4 % 0.0-1.5 [place] RELATIVE Health PERCENT IG RELATIVE 0.2 % 0.0-3.0 [place] PERCENT Health ANC AUTO DIFF 7266 1,500-8, [place] Cells/mm 000 Health 3 ID Date Data Source [id number] 12/07/2019 06:42:19 AM EDT [place] [facility] Name Value Range Interpretation Description Data Sup porting Code Source(s) Document(s ) Gyroscopic Instrument Tester [place] Authentication Health Interface Message Text Pt from home with c/o B/L lower adominal pain that radiates to the back thatstarted this morning. Denies any problems with bowels or urination. Hx of DM T2 ID Date Data Source [id number] 11/12/2019 08:22:13 PM EDT NEXTG EN ([place] [id number] [facility]) >PATIENT: Nancy Richardson DATE OF : 1965DATE: 11/07/2019 04:15 PMVISIT TYPE: Telehealth-A/VThis 54 year old male presents for HEADACHE.H istory of Present Illness:1. HEADACHE 54 year old male presents with complaints of headache. He missed work yesterday and today. Headache improves with antihypertensive. He states that he has poor sleep. He does not feel refresh upon waking up. H e states that sleep is disrupted. He denies hx of LEROY. He is currently under alot of stress related to Covid-19 outbreak. He is concerned that he might contract the virus. 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 There has been confirmed cases of Covid-19. Patient is requesting to be excused from work due t o chronic illnessess including asthma and diabetes.PROBLEM LIST: Problem List reviewed. Problem Description Onset Date Chronic C linical Status NotesDM type II Y HTN Y Hyperlipidemia Y Current smoker Y Asthma Y PAST MEDICAL/SURGICAL HISTORY (Detail ed)Disease/disorder Onset Date Management Date CommentsLeft foot surgery Lumbar spine fusion Umbilical hernia repair Fam miquel History (Detailed)Relationship Family Member Name Age at Condition Onset Age Cause of DeathBrother Y 54 Di ed of complications of DM NBrother Diabetes mellitus NFather Y 81 of lung cancer, former smoker NMother Stroke NMother Diabetes mellitus NMother Y 78 of complications related to DM NSister Y 48 of breast cancer NSocial His tory: (Reviewed, updated)Tobacco use reviewed.Preferred language is Kenyan. Tobacco use status: Heavy cigarette smoker (20-39 ci gs/day).Smoking status: Heavy tobacco smoker.SMOKING STATUSType Smoking Status Usage Per Day Years Used Total Pack YearsCigarette Heavy tobacco smoker 1 Packs 33.00 33.00TOBACCO/VAPING EXPOSUREThere is passive smoke exposure. The patient has had exposure to second hand smoke in the home environment.ALCOHOLThere is a history of alcohol use. consumed socially.CAFFEINEThe patient us es caffeine: tea - occ. a day.COMMENTS [employer], direct support for mentally disabledLives alone, 3 childrenSmokes 1 ppdSocial ETOHNo recreational drug useMedications (active prior to today)Medication Name Sig Description Start Date Stop Date Ref illed Rx Elsewherealbuterol sulfate 0.63 mg/3 mL solution for nebulization // Yhydrochlorothiazide 25 mg tablet take 1 tablet by oral route every day 06/01/2019 06/01/2019 Natorvastatin 20 mg tablet take 1 tablet by oral route every day 06/01/20 19 06/01/2019 Nmetformin 1,000 mg tablet take 1 tablet by oral route 2 times every day with morning and evening meals 9 06/01/2019 NJardiance 25 mg tablet take 1 tablet by oral route every day in the morning 06/01/2019 06/01/2019 Ncarvedil ol 25 mg tablet take 1 tablet by oral route 2 times every day with food 06/01/2019 06/01/2019 NProAir HFA 90 mcg/actuation aerosol inhaler inhale 2 puff by inhalation route every 4 - 6 hours as needed // YBreo Ellipta 200 mcg-25 mcg/dose powder for i nhalation inhale 1 puff by inhalation route every day at the same time each day 06/01/2019 NLOSARTAN POTASSIUM 100 MG TAB TAKE 1 TABLET BY MOUTH EVERY DAY 10/10/2019 10/10/2019 NChantix Starting Month Box 0.5 mg (11)-1 mg (42) tablets in dose pa ck Take as directed. 10/31/2019 NChantix Continuing Month Box 1 mg tablet take 1 tablet by oral route 2 times every day with gla ss of water after meals 10/31/2019 NMedication ReconciliationMedications reconciled today.AllergiesIngredient Reaction (Antoinette wadsworth) Medication Name CommentShellfish Reviewed, no changes.Review of SystemsSystem Neg/Pos DetailsConstitutional Negative C hills, Fatigue, Fever, Malaise, Night sweats, Weight gain and Weight loss.ENMT Negative Ear drainage, Hearing loss, Nasal draina ge, Otalgia, Sinus pressure and Sore throat.Eyes Negative Eye discharge, Eye pain and Vision changes.Respiratory Negative Mica Miner keira cough, Cough, Dyspnea, Known TB exposure and Wheezing.Cardio Negative Chest pain, Claudication, Edema and Irregular heartb eat/palpitations.GI Negative Abdominal pain, Blood in stool, Change in stool pattern, Constipation, Decreased appetite, Diarrh ea, Heartburn, Nausea and Vomiting. Negative Dribbling, Dysuria, Hematuria, Polyuria (Genitourinary), Slow stream, Urinary fr equency, Urinary incontinence and Urinary retention.Neuro Positive Headache.Neuro Negative Dizziness, Extremity weakness, Gait dist urbance, Memory impairment, Numbness in extremity, Seizures and Tremors.Psych Positive Anxiety, Insomnia, Stress.Psych Negative Depression.Integumentary Negative Brittle hair, Brittle nails, Change in shape/size of mole(s), Hair loss, Hirsutism, Hives, Pr uritus, Rash and Skin lesion.MS Negative Back pain, Joint pain, Joint swelling, Muscle weakness and Neck pain.Screening Summary :The following were reviewed: tobacco use, alcohol use, caffeine use and drugs of abusePhysical ExamExam Findings DetailsC onstitutional Normal No acute distress. Well nourished. Well developed.Psychiatric * Anxious.Psychiatric Normal Orientation - Oriented to time, place, person and situation.Telehealth ServicesThis visit was conducted with the use of interactive audio and vi gudelia telecommunications system that permits real time communication between the patient and provider. Patient consent for virtual v isit was obtained on date 11/07/2019[facility] Site: Patient s HomeTotal time of encounter 20 minutes .Assessment/Plan# Detail Type Description 1. Assessment Work-related stress (Z56.6). Patient Plan -This visit was conducted with the use of interactive audio and video telecommunications system that permits real time communication between the patient a nd provider. Patient consent for virtual visit was obtained on date: November 07, 2019 Originating Site: [facility] Site: Patient s Home Total time of encounter 20 mi nutes 2. Assessment Type 2 diabetes mellitus without complication, with long-term current use of insulin (E11.9). Provider Plan Stable. Continue current treatment. Follow-up as scheduled. 3. Assessment Essential hypertension (I10). Provider P rakesh Stable Continue current treatment. 4. Assessment Chronic obstructive pulmonary disease, unspecified COPD type (J44.9). Provider Plan Stable. Continue current treatment. 5. Assessment Sleep disorder (G47.9). Provider Plan Recommend consultation wit h pulmonry to r/o LEROY. Medications (Added, Continued or Stopped today)Started Medication Directions Instruction Stopped albuterol sulfate 0.63 mg/3 mL solution for nebulization 06/01/2019 atorvastatin 20 mg tablet take 1 tablet by oral route every day 06/01/2019 Breo Ellipta 200 mcg-25 mcg/dose powder for inhalation inhale 1 puff by inhalation route every day at the same time each day 06/01/2019 carvedilol 25 mg tablet take 1 tablet by oral route 2 times every day with food 10/31/2019 Chantix Continuing Month Box 1 mg tablet take 1 tablet by oral route 2 times every day with glass of water after meals 10/31/2019 Chantix Starting Month Box 0.5 mg (11)-1 mg (42) tablets in dose pack Take as directed. 06/01/2019 hydrochlorothiazide 25 mg tab let take 1 tablet by oral route every day 06/01/2019 Jardiance 25 mg tablet take 1 tablet by oral route every day in the orning 10/10/2019 LOSARTAN POTASSIUM 100 MG TAB TAKE 1 TABLET BY MOUTH EVERY DAY 06/01/2019 metformin 1,000 mg tablet jose e 1 tablet by oral route 2 times every day with morning and evening meals ProAir HFA 90 mcg/actuation aerosol inhaler inhale 2 p uff by inhalation route every 4 - 6 hours as needed Counseling / Educational Factors:Counseling / educational factors reviewed.Provider: Crissy Fitzpatrick DO 11/12/2019 12:36 PMDocument generated by: Crissy Fitzpatrick DO 11/12/2019 12:[address] [facility] Nancy Sharpe [id number] 196611/07/2019 04:15 PM / Name Value Range Interpretation Code Description Data Susan rce(s) Supporting Document(s ) ID Date Data Source [id number] 10/31/2019 05:00:15 PM EDT RENEG EN (Janell Nuñez [id number] [facility]) >PATIENT: Nancy Richardson DATE OF : 1965DATE: 10/31/2019 04:30 PMVISIT TYPE: Office VisitThis 54 year old male presents for HEADACHE.History of Present Illness: 1. HEADACHE 54 year old male presents with complaints of headache that started yesterday morning upon waking up. He states that he was not sleeping right. He has two jobs, direct support during the day, EMS during the night. He missed work yesterday. Overall, headache improving with rest. He admits that he missed taking his antihypertensive for the last few days. Patient also requests for Chantix. He is interested in quitting smoking.PROBLEM LIST: Problem List reviewed. Problem Description Onset Date Chronic Clinical Status NotesDM type II Y HTN Y Hyperlipidemia Y Current smoker Y Asthma Y PAST MEDIC AL/SURGICAL HISTORY (Detailed)Disease/disorder Onset Date Management Date CommentsLeft foot surgery Lumbar spine fusion Umbilical hernia repair Fam miquel History (Detailed)Relationship Family Member Name Age at Condition Onset Age Cause of DeathBrother Y 54 of complications of DM NBrother Diabetes mellitus NFather Y 81 of lung cancer, former smoker NMother Stroke NMother Diabetes mellitus NMother Y 78 o f complications related to DM NSister Y 48 of breast cancer NSocial History: (Reviewed, updated)Tobacco use reviewed.Preferred language is Kenyan. Tobacco use status: Heavy cigarette smoker (20-39 cigs/day).Smoking status: Heavy tobacco smoker.SMOKING STATUSType Smoking Status Usage Per Day Years Used Total Pack YearsCigarette Heavy tobacco smoker 1 Packs 33.00 33.00TOBACCO/VAPING EXPOSUREThere is passive smoke exposure. The patient has had exposure to second hand smoke in the home environment.ALCOHOLThere is a history of alcohol use. consumed socially.CAFFEINEThe patient uses caffeine: tea - occ. a day. COMMENTS [employer], direct support for mentally disabledLives alone, 3 childrenSmokes 1 ppdSocial ETOHNo recreational drug useMedications (active prior to tod ay)Medication Name Sig Description Start Date Stop Date Refilled Rx Elsewherealbuterol sulfate 0.63 mg/3 mL solution for nebulization // Yhydrochlorothiaz caron 25 mg tablet take 1 tablet by oral route every day 06/01/2019 06/01/2019 Natorvastatin 20 mg tablet take 1 tablet by oral route every day 06/01/20 19 06/01/2019 Nmetformin 1,000 mg tablet take 1 tablet by oral route 2 times every day with morning and evening meals 06/01/2019 06/01/2019 NJardiance 25 mg tablet take 1 tablet by oral route every day in the morning 06/01/2019 06/01/2019 Ncarvedilol 25 mg tablet take 1 tablet by oral route 2 times ever y day with food 06/01/2019 06/01/2019 NProAir HFA 90 mcg/actuation aerosol inhaler inhale 2 puff by inhalation route every 4 - 6 hours as needed // YBreo Ellipta 200 mcg-25 mcg/dose powder for inhalation inhale 1 puff by inhalation route every day at the same time each day 06/01/2019 NLOSARTAN POTASSIUM 100 MG TAB TAKE 1 TABLET BY MOUTH EVERY DAY 10/10/2019 10/10/2019 NMedication ReconciliationMedications reconciled today.AllergiesIngredient Reaction (Antoinette wadsworth) Medication Name CommentShellfish Reviewed, no changes.Review of SystemsSystem Neg/Pos DetailsConstitutional Negative Chills, Fatigue, Fever, Malaise , Night sweats, Weight gain and Weight loss.ENMT Negative Ear drainage, Hearing loss, Nasal drainage, Otalgia, Sinus pressure and Sore throat.Eyes Negative E ye discharge, Eye pain and Vision changes.Respiratory Negative Chronic cough, Cough, Dyspnea, Known TB exposure and Wheezing.Cardio Negative Chest pain, Cla udication, Edema and Irregular heartbeat/palpitations.GI Negative Abdominal pain, Blood in stool, Change in stool pattern, Constipation, Decreased appetit e, Diarrhea, Heartburn, Nausea and Vomiting. Negative Dribbling, Dysuria, Hematuria, Polyuria (Genitourinary), Slow stream, Urinary frequency, Urinary incon tinence and Urinary retention.Endocrine Negative Cold intolerance, Heat intolerance, Polydipsia and Polyphagia.Neuro Negative Dizziness, Extremity weakness, Gait disturbance, Headache, Memory impairment, Numbness in extremity, Seizures and Tremors.Psych Negative Anxiety, Depression and Insomnia.Integumentary Ne gative Brittle hair, Brittle nails, Change in shape/size of mole(s), Hair loss, Hirsutism, Hives, Pruritus, Rash and Skin lesion.MS Negative Back pain, Joint pain, Joint swelling, Muscle weakness and Neck pain.Vital SignsTime BP mm/Hg Pulse /min Resp /min Temp F Ht ft Ht in Ht cm Wt lb Wt kg BMI kg/m2 BSA m2 O2 Sa t%4:37 PM 150/90 4:16 PM 164/97 77 18 98.5 6.0 3.00 190.50 235.00 106.594 29.37 95Measured ByTime Measured by4:37 PM Crissy Fitzpatrick DO4:16 PM Carson PerryScreening Summary:Pain is described as 0/10. Evaluated pain score with Numeric Pain Intensity Scale.The following were reviewed: tobacco use, al cohol use, caffeine use and drugs of abusePhysical ExamExam Findings DetailsConstitutional Normal Well developed.Eyes Normal Conjunctiva - Right: Normal, Left : Normal. Pupil - Right: Normal, Left: Normal.Ears Normal Inspection - Right: Normal, Left: Normal. Canal - Right: Normal, Left: Normal. TM - Right: Normal , Left: Normal.Nose/Mouth/Throat Normal External nose - Normal. Lips/teeth/gums - Normal. Tonsils - Normal. Oropharynx - Normal.Respiratory Normal I nspection - Normal. Auscultation - Normal. Effort - Normal.Cardiovascular Normal Regular rate and rhythm. No murmurs, gallops, or rubs.Psychiatric Normal Orie ntation - Oriented to time, place, person and situation. Appropriate mood and affect.Completed Orders (this encounter)Order Details Reason Side Inte rpretation Result Initial Treatment Date RegionPatient Health Questionnaire (PHQ-9) 0 Assessment/Plan# Detail Type Description 1. Assessment Essential hypertension (I10). Provider Plan Uncontrolled. Emphasized importance of medication compliance. Follow-up in November 2019 as scheduled. 2. Assessment Nonin tractable headache, unspecified chronicity pattern, unspecified headache type (R51). Provider Plan Improving. Likely related to poor sleep or uncontrolled HT N. Emphasize importance of medication clearance. Recommend NSAIDs, rest, hydration. Call or return if headache persists. 3. Assessment Cigarette nick sekou dependence with nicotine-induced disorder (F17.219). Provider Plan Trial of Chantix as directed. 4. Other Orders Orders not associated to today's assessments. Plan Orders Basic Metabolic Profile (BMP) to be performed and Hemoglobin A1c (HA1C) to be performed.Medications (Added, Continued or Stopped today)Started Medication Directions Instruction Stopped albuterol sulfate 0.63 mg/3 mL solution for nebulization 06/01/2019 atorvastatin 2 0 mg tablet take 1 tablet by oral route every day 06/01/2019 Breo Ellipta 200 mcg-25 mcg/dose powder for inhalation inhale 1 puff by inhalation route every day at the same time each day 06/01/2019 carvedilol 25 mg tablet take 1 tablet by oral route 2 times every day with food 10/31/2019 Chantix Continuing Tyrell h Box 1 mg tablet take 1 tablet by oral route 2 times every day with glass of water after meals 10/31/2019 Chantix Starting Month Box 0.5 mg (11)-1 mg (42) tablets in dose pack Take as directed. 06/01/2019 hydrochlorothiazide 25 mg tablet take 1 tablet by oral route every day 06/01/2019 Jardiance 25 mg ta blet take 1 tablet by oral route every day in the morning 10/10/2019 LOSARTAN POTASSIUM 100 MG TAB TAKE 1 TABLET BY MOUTH EVERY DAY 06/01/2019 metformin 1, 000 mg tablet take 1 tablet by oral route 2 times every day with morning and evening meals ProAir HFA 90 mcg/actuation aerosol inhaler inhale 2 p uff by inhalation route every 4 - 6 hours as needed Counseling / Educational Factors:Counseling / educational factors reviewed.Provider: Soraya Fitzpatrick DO 10/31/2019 4:46 PMDocument generated by: Crissy Fitzpatrick DO 10/31/2019 04:45 PM -------[facility], LLPElectr onically signed by Crissy Fitzpatrick DO on 10/31/2019 05:00 Nancy Sharpe [id number] 1965 10/31/2019 04:30 PM / Name Value Range Interpretation Code Description Data Susan rce(s) Supporting Document(s ) ID Date Data Source [id number] 09/03/2019 12:55:00 PM EST NEXTG EN ([employer] [id number] [employer]) >PATIENT: Nancy Richardson DATE OF : 1965DATE: 09/02/2019 07:30 AMVISIT TYPE: Office VisitThis 54 year old male presents for ROUTINE FOLLOW-UP.History o f Present Illness:1. ROUTINE FOLLOW-UP 54 year old male presents for routine follow-up. He is compliant with taking his medications. He does no t check his glucose. He denies hypoglycemic episodes. He smokes 1 ppd, increased since last visit. He reports normal stress related to work. He works as EMT. He wishes to get STDs screening. His partner recently admitted to cheating.PROBLEM LIST: Problem List reviewed. Problem Descrip tion Onset Date Chronic Clinical Status NotesDM type II Y HTN Y Hyperlipidemia Y Current smoker Y Asthma Y PAST MEDICAL/SURGICAL HISTORY (Detailed)Disease/disorder Onset Date Management Date CommentsLeft foot surgery Lumbar spine fusion Umbilical hernia repair Family Histo ry (Detailed)Relationship Family Member Name Age at Condition Onset Age Cause of DeathBrother Diabetes mellitus NBrot her Y 54 of complications of DM NFather Y 81 of lung cancer, former smoker NMother Stroke NMother Y 78 of complications rela ashwin to DM NMother Diabetes mellitus NSister Y 48 of breast cancer NSocial History: (Reviewed, updated)Tobacco use reviewed.Preferred l anguage is Kenyan. Tobacco use status: Heavy cigarette smoker (20-39 cigs/day).Smoking status: Heavy tobacco smoker.SMOKING STATUSType Smokin g Status Usage Per Day Years Used Total Pack YearsCigarette Heavy tobacco smoker 1 Packs 33.00 33.00TOBACCO/VAPING EXPOSUREThere is pas sive smoke exposure. The patient has had exposure to second hand smoke in the home environment.ALCOHOLThere is a history of alcohol use. consumed socially.CAFFEINEThe patient uses caffeine: tea - occ. a day.COMMENTS [employer], direct support for mentally disabledLive s alone, 3 childrenSmokes 1 ppdSocial ETOHNo recreational drug useMedications (active prior to today)Medication Name Sig Description St art Date Stop Date Refilled Rx Elsewherealbuterol sulfate 0.63 mg/3 mL solution for nebulization // Yhydrochlorothiazide 25 mg tablet take 1 tablet by oral route every day 06/01/2019 06/01/2019 Natorvastatin 20 mg tablet take 1 tablet by oral route every day 06/01/2019 06/01/2019 Nmetformin 1,000 mg tablet take 1 tablet by oral route 2 times every day with morning and evening meals 06/01/2019 06/01/2019 Nlosartan 100 mg tablet take 1 tablet by oral route every day 06/01/2019 06/01/2019 NJardiance 25 mg tablet take 1 tablet by oral route every day in the morning 06/01/2019 06/01/2019 Ncarvedilol 25 mg tablet take 1 tablet by oral route 2 times every day with food 06/01/2019 06/01/2019 NProAir HFA 90 mc g/actuation aerosol inhaler inhale 2 puff by inhalation route every 4 - 6 hours as needed // YBreo Ellipta 200 mcg-25 mcg/dose powder for i nhalation inhale 1 puff by inhalation route every day at the same time each day 06/01/2019 NMedication ReconciliationMedications reconciled toflaca otto.AllergiesIngredient Reaction (Severity) Medication Name CommentShellfish Reviewed, no changes.Review of SystemsSystem Neg/Pos DetailsConstitu tional Negative Chills, Fatigue, Fever, Malaise, Night sweats, Weight gain and Weight loss.ENMT Negative Ear drainage, Hearing loss, Nasal draina ge, Otalgia, Sinus pressure and Sore throat.Eyes Negative Eye discharge, Eye pain and Vision changes.Respiratory Negative Chronic cou gh, Cough, Dyspnea, Known TB exposure and Wheezing.Cardio Negative Chest pain, Claudication, Edema and Irregular heartbeat/palpitations.GI Nega tive Abdominal pain, Blood in stool, Change in stool pattern, Constipation, Decreased appetite, Diarrhea, Heartburn, Nausea and Vomiting. Negati ve Dribbling, Dysuria, Hematuria, Polyuria (Genitourinary), Slow stream, Urinary frequency, Urinary incontinence and Urinary retention.Neuro Negative Dizziness, Extremity weakness, Gait disturbance, Headache, Memory impairment, Numbness in extremity, Seizures and Tremors.Psych Ne gative Anxiety, Depression and Insomnia.Integumentary Negative Brittle hair, Brittle nails, Change in shape/size of mole(s), Hair loss, Hirsut ism, Hives, Pruritus, Rash and Skin lesion.MS Negative Back pain, Joint pain, Joint swelling, Muscle weakness and Neck pain.Vital SignsTime B P mm/Hg Pulse /min Resp /min Temp F Ht ft Ht in Ht cm Wt lb Wt kg BMI kg/m2 BSA m2 O2 Sat%7:39 AM 126/81 80 16 6.0 3.00 190.50 232.00 105.233 29.00 97Measured ByTime Measured by7:39 AM [facility] WestScreening Summary:Pain is described as 0/10. Evaluated pain score with Numeric Pain Intensity S curry.The following were reviewed: tobacco use, alcohol use, caffeine use and drugs of abusePhysical ExamExam Findings DetailsConstitutional Normal Well developed.Eyes Normal Conjunctiva - Right: Normal, Left: Normal. Pupil - Right: Normal, Left: Normal.Ears Normal Inspection - Right: N ormal, Left: Normal. Canal - Right: Normal, Left: Normal. TM - Right: Normal, Left: Normal.Nose/Mouth/Throat Normal External nose - Normal. Lips/teeth/gums - Normal. Tonsils - Normal. Oropharynx - Normal.Respiratory Normal Inspection - Normal. Auscultation - Norm al. Effort - Normal.Cardiovascular Normal Regular rate and rhythm. No murmurs, gallops, or rubs.Psychiatric Normal Orientation - Oriented to time, p lace, person and situation. Appropriate mood and affect.Completed Orders (this encounter)Order Details Reason Side Interpretation Result Initia l Treatment Date RegionPatient Health Questionnaire (PHQ-9) 0 Assessment/Plan# Detail Type Description 1. Assessment Type 2 diabetes mellitus w ithout complication, with long-term current use of insulin (E11.9). Provider Plan HgBA1C 6.8 Continue current treatment. Follow-up in 3 months . Plan Orders Basic Metabolic Profile (BMP) to be performed and Hemoglobin A1c (HA1C) to be performed. 2. Assessment Hyperlipidemia, unspecified h yperlipidemia type (E78.5). Provider Plan Stable. Continue statin once nightly. 3. Assessment Chronic obstructive pulmonary disease, unspecifi ed COPD type (J44.9). Provider Plan Smoking cessation recommended. Continue current treatment. 4. Assessment Essential hypertension (I10). Provider Plan Controlled. Continue antihypertensive daily. 5. Assessment Screening for STDs (sexually transmitted diseases) (Z11.3). Plan Orde rs Chlamydia + GC Amp to be performed, Hepatitis Panel, Acute to be performed, HIV 1+2 Abs to be performed, HSV (Herpes Simplex Virus) 1+2 Abs IgG I gM to be performed and Treponema pallidum antibody to be performed. Medications (Added, Continued or Stopped today)Started Medication Directi ons Instruction Stopped albuterol sulfate 0.63 mg/3 mL solution for nebulization 06/01/2019 atorvastatin 20 mg tablet take 1 tablet by oral route every day 06/01/2019 Breo Ellipta 200 mcg-25 mcg/dose powder for inhalation inhale 1 puff by inhalation route every day at the same time each d ay 06/01/2019 carvedilol 25 mg tablet take 1 tablet by oral route 2 times every day with food 06/01/2019 hydrochlorothiazide 25 mg tablet take 1 tablet by oral route every day 06/01/2019 Jardiance 25 mg tablet take 1 tablet by oral route every day in the morning 06/01/2019 losartan 100 mg tablet take 1 tablet by oral route every day 06/01/2019 metformin 1,000 mg tablet take 1 tablet by oral route 2 times every day with mornin g and evening meals ProAir HFA 90 mcg/actuation aerosol inhaler inhale 2 puff by inhalation route every 4 - 6 hours as needed Counseling / Educ ational Factors:Counseling / educational factors reviewed.Provider: Crisys Fitzpatrick DO 09/03/2019 12:49 PMDocument generated by: Crissy Rivera 09/03/2019 12:49 PM [facility] Nancy Sharpe [phone] [id number] 09/02/2019 07:30 AM / Name Value Range Interpretation Code Description Data Susan rce(s) Supporting Document(s ) Procedure Social History Code Duration Value Status Description Data Source(s ) Tobacco smoking 12/07/2019 [facility] 12:00:00 AM EDT day smoker Cigarettes smoked 12/07/2019 [facility] [place] [facility] current (pack per 12:00:00 AM EDT day) - Reported Vital Signs ID Date Data Source K Name Value Range Interpretation Code Description Data Source(s) Oxygen saturation in 100 % 100 % [facility] Arterial blood by Pulse oximetry Respiratory rate 18 /min 18 /min [facility] ealt Heart rate 80 /min 80 /min [place] [facility] Diastolic blood 79 mm[Hg] 79 mm[Hg] [facility] alth pressure Systolic blood 146 mm[Hg] 146 mm[Hg] [facility] lt pressure Body temperature 36.39 Joanie 36.39 Joanie [facility] ealt Body weight 106.595 kg 106.595 kg [place] [facility] Body height 190.5 cm 190.5 cm [facility]
[2020-05-29] MEDS ORDERED: KETOROLAC TROMETHAMINE 30 MG/1 ML VIAL ONE (06:41)
[2020-05-29] MEDS ORDERED: ONDANSETRON 4 MG/2 ML VIAL IVPUSH ONE (06:45)
[2020-05-29] MEDS ORDERED: morphine CARPU-JECT 2 MG/1 ML DISP.SYRIN IVPUSH ONE (07:26)
[2020-05-29] MEDS ORDERED: MORPHINE SULFATE 2 MG/ML VIAL ONE (07:29)
[2020-05-29 07:53] LABS: BASO % 0.9 % (0-2.0); EOS % 2.9 % (0-4.5); HEMATOCRIT 41.7 % (35.4-49); HEMOGLOBIN 13.9 GM/dL (11.7-16.9); LYMPH % 30.4 % (8-40); MCHC 33.3 g/dl (32.0-35.9); MONO % 6.5 % (3.8-10.2); NEUT % 59.3 % (42.8-82.8); PLATELET COUNT 309 K/MM3 (134-434); RBC 4.48 M/mm3 (4.00-5.60); WHITE BLOOD COUNT 7.5 K/mm3 (4.0-10.0)
[2020-05-29 08:11] LABS: POTASSIUM 3.9 mmol/L (3.5-5.1)
[2020-05-29 08:15] LABS: ALBUMIN 3.7 g/dl (3.4-5.0); BLOOD UREA NITROGEN 17.8 mg/dL (7-18); CALCIUM 9.6 mg/dL (8.5-10.1)
[2020-05-29 08:18] LABS: CREATININE 1.3 mg/dL (0.55-1.3)
[2020-05-29 08:20] LABS: BILIRUBIN,TOTAL 0.3 mg/dL (0.2-1)
--- NOTE | 2020-05-29 08:45 | PDOC ---
Documentation entered by Kash Vila SCRIBE, acting as scribe for Kingston Diane MD. Kingston Diane MD: This documentation has been prepared by the Julito pickering Xhesika, SCRIBE, under my direction and personally reviewed by me in its entirety. I confirm that the documentation accurately reflects all work, treatment, procedures, and medical decision making performed by me. History of Present Illness - General Chief Complaint: Pain, Acute Stated Complaint: FLANK PAIN Time Seen by Provider: 05/29/20 07:20 History Source: Patient Exam Limitations: No Limitations - History of Present Illness Initial Comments: 05/29/20 07:25 The patient is a 54y/o M with a PMH of kidney stones, HTN, DM, and HLD who presents to the ED for R flank pain since 4:45am. Pt describes his pain as sharp, stabbing, radiating to his front abdomen, associated with nausea and vomiting this morning. Pt states his pain was initially a 8/10 and it is now a 3/10 after receiving pain meds in the ED. The patient denies chest pain, shortness of breath, headache and dizziness. Denies fever, chills, cough, diarrhea and constipation. Denies dysuria, frequency, urgency and hematuria. Allergies: NKDA Past History - Medical History Allergies/Adverse Reactions: Allergies Allergy/AdvReac Type Severity Reaction Status Date / Time No Known Allergies Allergy Verified 05/29/20 06:30 Home Medications: Ambulatory Orders Sulfamethoxazole/Trimethoprim [Bactrim Ds -] 1 tab PO BID #14 tablet 05/29/20 - Psycho-Social/Smoking History Smoking History: Never smoked Information on smoking cessation initiated: No - Substance Abuse Hx (Audit-C & DAST Scrn) How often the patient has a drink containing alcohol: Never Score: In Men: 4 or > Positive; In Women: 3 or > Positive: 0 Screen Result (Pos requires Nsg. Audit-10AR): Negative In the last yr the pt used illegal drug/Rx for NonMed reason: No Score: Yes response is considered Positive: 0 Screen Result (Positive result requires Nsg. DAST-10): Negative Review of Systems - Review of Systems Comments:: 05/29/20 07:34 CONSTITUTIONAL: No fever, no chills, no fatigue EYES: No visual changes ENT: No ear pain, no sore throat CARDIOVASCULAR: No chest pain, no palpitations RESPIRATORY: No cough, no SOB GI: +R flank pain, + nausea, +vomiting, no constipation, no diarrhea GENITOURINARY: No dysuria, no frequency, no hematuria MUSKULOSKELETAL: No backpain, no joint pain, no myalgias SKIN: No rash NEURO: No headache *Physical Exam - Vital Signs Last Vital Signs Temp Pulse Resp BP Pulse Ox 97.6 F 67 18 138/86 97 05/29/20 06:25 05/29/20 06:25 05/29/20 06:25 05/29/20 06:25 05/29/20 06:25 - Physical Exam 05/29/20 07:45 CONSTITUTIONAL: Well-appearing; well-nourished; in no apparent distress HEAD: Normocephalic; atraumatic EYES: PERRL; EOM intact ENMT: External appears normal; normal oropharynx NECK: Supple; non-tender; no cervical lymphadenopathy CARD: Normal S1, S2; no murmurs, rubs, or gallops RESP: Normal chest excursion with respiration; breath sounds clear and equal bilaterally; no wheezes, rhonchi, or rales ABD: Soft, non-distended; non-tender; no palpable organomegaly, no palpable her nias EXT: Normal ROM in all four extremities; non-tender to palpation; distal pulses intact SKIN: Warm, dry, no rash NEURO: No focal neurological deficiencies. ED Treatment Course - LABORATORY CBC & Chemistry Diagram: 05/29/20 06:45 05/29/20 06:45 - Medications Given in the ED: ED Medications Discontinued Medications Generic Name Dose Route Start Last Admin Trade Name Freq PRN Reason Stop Dose Admin Ketorolac Tromethamine 30 mg 05/29/20 06:31 05/29/20 06:49 Toradol Injection - IVPUSH 05/29/20 06:32 30 mg ONCE ONE Administration Ondansetron HCl 4 mg 05/29/20 06:45 05/29/20 06:50 Zofran Injection IVPUSH 05/29/20 06:46 4 mg ONCE ONE Administration Medical Decision Making - Medical Decision Making 05/29/20 08:44 Patient is a 54-year-old male with multiple comorbidities, history of nephrolithiasis presents with intermittent sharp right-sided flank pain radiating anteriorly prior to arrival. Patient received Toradol prior to my evaluation. Patient is afebrile and nontoxic-appearing. CBC reveals no evidence of leukocytosis. CMP reveals normal BUN and creatinine. CT of the a bdomen pelvis reveals hydronephrosis with perinephric stranding and a calculus within the bladder consistent with recently passed stone. Patient currently asymptomatic and resting comfortably. CT also noted for thickening of the colon consistent with colitis. On further questioning, patient acknowledges intermittent mild diarrhea for the past several months. Patient is scheduled to be evaluated by colonoscopy on 07 June by GI. 05/29/20 09:45 Patient reassessed. Patient is resting comfortably. Tolerates p.o. UA is consistent with 44 WBCs 9 RBCs. Will administer 2 g of ceftriaxone given patient is a diabetic. Will discharge on p.o. antibiotics with urology follow- up. Discharge - Discharge Information Problems reviewed: Yes Clinical Impression/Diagnosis: Nephrolithiasis, Colitis Urinary tract infection Qualifiers: Urinary tract infection type: site unspecified Hematuria presence: without hematuria Qualified Code(s): N39.0 - Urinary tract infection, site not specified Condition: Stable Disposition: HOME - Follow up/Referral Referrals: Crissy Fitzpatrick DO [Primary Care Provider] - - Patient Discharge Instructions Patient Printed Discharge Instructions: Kidney Stones -- Adult, DI for Urinary Tract Infection (UTI), DI for Colitis Additional Instructions: Your CAT scan shows that you have passed a kidney stone. CAT scan also showed that your large intestine is thickened which may be related to colitis which you are scheduled to be evaluated for on 07 June by gastroenterology. Your lab results show a urinary tract infection which needs to be treated with antibiotics you were prescribed. Take antibiotics as prescribed. Return immediately for fever, persistent nausea, vomiting, intractable pain. - Post Discharge Activity
[2020-05-29 09:31] LABS: EPI CELLS 3 /uL (0-25.1); HYALINE CASTS 0 /uL (0-3.1); URINE APPEARANCE CLEAR; URINE BACTERIA 16 /uL (0-1359); URINE BILIRUBIN NEGATIVE (NEGATIVE); URINE COLOR YELLOW; URINE GLUCOSE (UA) 3+ (NEGATIVE); URINE KETONE NEGATIVE (NEGATIVE); URINE LEUK ESTERASE NEGATIVE (NEGATIVE); URINE NITRITE NEGATIVE (NEGATIVE); URINE PROTEIN NEGATIVE (NEGATIVE); URINE RBC 9 /uL (0-23.9); URINE UROBILINOGEN 0.2 mg/dL (0.2-1.0); URINE WBC 44 /uL (0-25.8)
[2020-05-29] MEDS ORDERED: CEFTRIAXONE 2,000 MG in DEXTROSE 5%-WATER - 50 ML IVPB ONE (09:38)
[2020-05-29] MEDS ORDERED: CEFTRIAXONE 2 GM/100 ML BAG IVPB ONE (10:01)
[2020-05-29 11:37] VITALS: BP 135/75; PULSE 68; TEMP 98
== END 2020-05-29 11:30 | disposition home or self-care (01) ==
LOC: JER 06:18
PROC: 3E033NZ Introduction of Analgesics, Hypnotics, Sedatives into Peripheral Vein, Percutaneous Approach (ICD-10-PCS; principal; 2020-05-29)
PROC: 3E033GC Introduction of Other Therapeutic Substance into Peripheral Vein, Percutaneous Approach (ICD-10-PCS; 2020-05-29)
PROC: 3E0337Z Introduction of Electrolytic and Water Balance Substance into Peripheral Vein, Percutaneous Approach (ICD-10-PCS; 2020-05-29)
DX: N12 Tubulo-interstitial nephritis, not specified as acute or chronic (principal); K52.9 Noninfective gastroenteritis and colitis, unspecified; N39.0 Urinary tract infection, site not specified
CPT/HCPCS: 36415; 74176-TC; 80053; 81003; 85025; 87086; 99285-25